=== PATIENT | male | born 1950 | race Caucasian/White ===

== ENCOUNTER 2024-11-06 12:29 | Outpatient (CLI) | payer MEDICARE, SELFPAY ==
--- NOTE | ~2024-11-06 | PE_ITS ---
EXAMINATION: PET_PETPSMAST_PT DATE: 11/06/2024 14:57 INDICATION: Prostate cancer TECHNIQUE: 5.156 mCi of Illucix Ga-[id number]) was administered i.v. Low dose computed marita graphy (CT) images were acquired from the base of the brain to the base of the brain to the proximal thighs for attenuation correction and anatomic localization. Positron emission tomography (PET) image s were acquired in the same distribution beginning 92 minutes after injection. Images including fused PET/CT images were reconstructed in axial, coronal, and sagittal planes. Automated exposure control technique was employed. The dose-length product was 1373.69mGy-cm. COMPARISON: None FINDINGS: Head/neck: Typical pattern of symmetric physiologic increased activity in the lacrimal, parotid and submandibula r glands as well as along the mucosa of the nasal and oral cavities, pharynx and hypopharynx. 1.8 cm right thyroid nodule with peripheral rim calcification and with minimally increased PSMA with maximal SUV of 3.6. No pathologically enlarged cervical lymphadenopathy or suspicious foci of increased upta ke in the visualized head or neck. Chest: 9 mm left upper lobe nodule without evident PSMA activity. Small calcified right upper lobe nodule al chelo with calcified right hilar and mediastinal lymph nodes consistent with old granulomatous disease. No other suspicious pulmonary nodules. Groundglass opacity in the anterobasilar left lower lobe and in the adjacent lingula, the former with bandlike configuration favoring atelectasis. There is also m ild dependent atelectasis in bilateral lower lobes. Heart size is normal. No pericardial effusion. Th oracic aorta is normal in caliber. No pathologically enlarged or PSMA avid thoracic lymphadenopathy. Abdomen/pelvis/proximal thighs: Physiologic renal accumulation and excretion of activity in the kidneys, bladder and along portions o f ureters. Small region of prominent increased peripheral zone activity at the central to left environmental engineer scientist ior inferior prostate with maximal SUV of 18.3 consistent with primary prostate cancer. Normal degree and slightly heterogenous pattern of increased uptake throughout the liver and spleen without radiol ogic correlate or dominant PSMA avid lesion. The gallbladder, pancreas and bilateral adrenal glands a re normal. Moderate uptake scattered throughout the bowels with typical duodenal and proximal jejunal predominance and without radiologic correlate, also likely physiologic. No other abnormal foci of in creased uptake or pathologically enlarged lymphadenopathy in the abdomen, pelvis or proximal thighs. Musculoskeletal: Severe thoracic and mild to moderate cervical and lumbar spondylosis with bridging osteophytes at mul tiple levels consistent with diffuse idiopathic skeletal hyperostosis (DISH). Indeterminate 1.8 cm sc lerotic lesion at the anterior iliac side of the left sacroiliac joint which without PSMA activity to suggest metastatic prostate cancer. Several additional significant smaller and more densely scleroti c likely bone bone islands also without abnormal uptake scattered throughout the pelvis. No other alberto picious lytic, blastic or PSMA avid bone lesions. IMPRESSION: 1. Small region of increased uptake in the posterior inferior prostate consistent with primary prosta te cancer. No PSMA avid lesion suspicious for metastatic prostate cancer. 2. Indeterminate 9 mm left upper lobe pulmonary nodule. Recommend correlation with any prior outside imaging and if long-term stability cannot be confirmed would recommend further evaluation with standa rd PET CT or 3 month follow-up chest CT. 3. Small region of groundglass opacity in the lingula most likely related to atelectasis although dif ferential would include pneumonia or less likely primary bronchogenic carcinoma. Recommend similar co rrelation with prior outside imaging or follow-up as for the 9 mm solid left upper lobe nodule. 4. Indeterminate 1.8 cm right thyroid nodule. Consider thyroid ultrasound for risk stratification. 5. 1.8 cm sclerotic lesion in the left innominate bone without PSMA uptake to suggest metastatic pros [place]ños cancer. Recommend correlation with any prior outside imaging and if unavailable would consider f urther evaluation with bone scan. Reviewed, dictated and finalized at location A. IMPRESSION: 1. Small region of increased uptake in the posterior inferior prostate consiste nt with primary prostate cancer. No PSMA avid lesion suspicious for metastatic prostate cancer. 2. Indeterminate 9 mm left upper lobe pulmonary nodule. Recommend correlation w ith any prior outside imaging and if long-term stability cannot be confirmed wo uld recommend further evaluation with standard PET CT or 3 month follow-up ches t CT. 3. Small region of groundglass opacity in the lingula most likely related to at electasis although differential would include pneumonia or less likely primary bronchogenic carcinoma. Recommend similar correlation with prior outside imagin g or follow-up as for the 9 mm solid left upper lobe nodule. 4. Indeterminate 1.8 cm right thyroid nodule. Consider thyroid ultrasound for r isk stratification. 5. 1.8 cm sclerotic lesion in the left innominate bone without PSMA uptake to s uggest metastatic prostate cancer. Recommend correlation with any prior outside imaging and if unavailable would consider further evaluation with bone scan.
--- OUTSIDE RECORDS SUMMARY | 2024-11-06 14:51 | XMS_ITS | Clinical Summary ---
Author Organization [facility] Address [address] [facility] [place] [address] Care Team Providers Care Janitor Head Name Role Phone Jag Licea MD Unavailable [phone] Heydi Lao MD Unavailable [phone] Pj Singh MD Primary Care Provider [phone] Source Comments [facility],non-owned Affiliates and Associated Physician Practices is amultiple site organization consisting of ambulatory clinics and hospital sitesin [place], [place], [place] and [place]. This disclosure is being madepursuant to the Care Everywhere program and may not contain all information available regarding this patient. Last updated 18.[facility] Allergies No known active allergies Medications * Be aware that medications may not be up to date on this document. Alwaysverify current medications with the patient. Medication Sig Dispensed Refills Start Date End Date Status apixaban (ELIQUIS) 5 MG tablet Take 1 (one) tablet by mouth 2 times daily 10/10/2019 Active insulin degludec (TRESIBA FLEXTOUCH) 200 UNIT/ML pen 40 (forty) Units once daily 08/02/2019 Active atorvastatin (LIPITOR) 40 MG tablet Take 1 (one) tablet by mouth Active amLODIPine (NORVASC) 5 MG tablet TAKE 1 TABLET BY MOUTH EVERY MORNING 01/23/2019 Active lisinopril-hydroCH LOROthiazide (PRINZIDE; ZESTORETIC) 20-12.5 MG tablet TAKE 2 TABLETS BY MOUTH EVERY DAY 01/23/2019 Active blood glucose (PRECISION QID TEST) test strip USE TO CHECK SUGAR 3 TIMES DAILY 09/12/2019 Active Cobalamin Combinations (FOLTRATE) 500-1 MCG-MG Take 1 tablet by mouth once daily Active Insulin Pen Needle (NOVOFINE PLUS) 32G X 4 MM MISC USE TWICE A DAY DIRECTED 08/14/2019 Active finasteride (PROSCAR) 5 MG tablet 1 (one) tablet 01/23/2019 Active Lutein-Zeaxanthin 25-5 MG Take 1 capsule by mouth once daily Active tamsulosin (FLOMAX) 0.4 MG capsule TAKE 2 CAPSULES BY ORAL ROUTE EVERY DAY 1/2 HOUR FOLLOWING THE SAME MEAL EACH DAY 07/24/2019 Active MYRBETRIQ 50 MG tablet Take by mouth once daily 11/12/2019 Active Accu-Chek FastClix Lancets USE TO CHECK SUGARS THREE TIMESA DAY 05/08/2022 Active liraglutide (Victoza) 18 MG/3ML pen Inject 1.8 mg subcutaneously once daily 9 mL 2 01/14/2023 Active metFORMIN ER 24hr (Glucophage XR) 750 MG tablet 12/15/2022 Active modafinil (Provigil) 200 MG tablet Take 1 (one) tablet by mouth once daily 30 tablet 5 12/07/2022 Active spironolactone (Aldactone) 25 MG tablet Take 1 (one) tablet by mouth once daily 11/30/2022 Active omeprazole (PriLOSEC) 10 MG capsule Take 1 (one) capsule by mouth daily before breakfast 12/31/2023 Active Jardiance 10 MG tablet Take 1 (one) tablet by mouth once daily 04/03/2024 Active pioglitazone (Actos) 30 MG tablet Take 1 (one) tablet by mouth once daily 03/24/2024 Active lisinopril (Prinivil; Zestril) 20 MG tablet Take 1 (one) tablet by mouth once daily Active carvedilol (Coreg) 25 MG tablet TAKE 1 TABLET BY MOUTH TWICE DAILY WITH BREAKFAST AND DINNER 180 tablet 1 05/08/2024 Active potassium chloride ER (Klor-Con M) 20 MEQ tablet TAKE 2 TABLETS BY MOUTH EVERY DAY 180 tablet 3 06/02/2024 Active Active Problems Problem Noted Date Diagnosed Date MACHUCA (dyspnea on exertion) 01/28/2020 Chronic anticoagulation 01/28/2020 Persistent atrial fibrillation 11/25/2019 Essential hypertension 11/25/2019 Encounters Date Type Department Care Team Description 10/18/2024 11:30 AM OFFICE ASSISTANCE Office Visit [facility] [id number] [place] [address] [address] [place] [phone] Jag Licea MD Persistent atrial fibrillation (HCC) (Primary Dx); Chronic anticoagulation 10/18/2024 Travel 09/21/2024 Travel from Last 3 Months Social History Tobacco Use Types Packs/Day Years Used Date Smoking Tobacco: Never Smokeless Tobacco: Never Tobacco Cessation:Counseling Given: Not Answered Alcohol Use Standard Drinks/Week Comments Never 0 (1 standard drink = 0.6 oz pur e alcohol) AUDIT-C Answer Date Recorded Q1: How often do you have a drink containing alc ohol? Never 10/11/2020 Average Number of Drinks Not on file 021 Frequency of Binge Drinking Not on file 09/23 Sex and Gender Information Value Date Recorded Sex Assigned at Male 10/06/2020 7:39 PM OFFICE ASSISTANCE Gender Identity Male 10/06/2020 7:39 PM OFFICE ASSISTANCE Sexual Orientation Straight 10/06/2020 7: 39 PM OFFICE ASSISTANCE Last Filed Vital Signs Vital Sign Reading Time Taken Comments Blood Pressure 111/75 10/18/2024 11:23 AM OFFICE ASSISTANCE Pulse 64 10/18/2024 11:23 AM OFFICE ASSISTANCE Temperature 36.1 C (97 F) 11/05/2020 7:34 AM CDT Respiratory Rate 22 11/05/2020 12:30 PM CDT Oxygen Saturation 97% 10/18/2024 11:23 AM OFFICE ASSISTANCE Inhaled Oxygen Concentration - - Weight 136.1 kg (300 lb) 10/18/2024 11:23 AM OFFICE ASSISTANCE Height 185.4 cm (6' 0.99 ) 10/18/2024 11:[address] Body Mass Index 39.59 10/18/2024 11:23 AM OFFICE ASSISTANCE Plan of Treatment Upcoming Encounters Date Type Department Care Team (Late st Contact Info) Description 02/28/2025 11:00 AM CDT Office Visit [facility] [address] [place] [address] [address] [place] [address] [place] [id number] [phone] 08/10/2025 10:45 AM OFFICE ASSISTANCE Office Visit [facility] [address] [facility] [place] [address] [place] [address] [facility] [address] [place] [address] Health Maintenance Due Date Last Done Comments COLOGUARD (AGES 45-75) - COLON CA SCREENING [address] COLONOGRAPHY - COLON CA SCREENING 1949 FIT - COLON CA SCREENING 1950 FLEX SIG - COLON CA SCREENING 1949 MEDICARE AWV 12 MONTHS 1949 HEPATITIS C SCREENING 05/24/1967 DTAP/TDAP/TD VACCINES (1 - Tdap) 1968 PNEUMOCOCCAL VACCINE 50+ (1 of 1 - PCV) 1999 ZOSTER VACCINE (1 of 2) 1999 COVID-19 VACCINE (4 - season) 2024 05/08/2022, 11/22/2020, 10/25/2020 Respiratory Syncytial Virus (RSV) Vaccine Pt: or over 60 yrs (1 - 1-dose 75+ series) 2024 DEPRESSION SCREENING 08/23/2024 COLONOSCOPY - COLON CA SCREENING 07/03/2030 07/03/2020 Colorectal Cancer Screening 07/03/2030 INFLUENZA VACCINE Completed 05/09/2024, , 06/03/2018, Additional history exists HEPATITIS B VACCINE Aged Out No longe r eligible based on patient's age to complete this topic HIB VACCINE Aged Out No longer eligi ble based on patient's age to complete this topic HPV VACCINE Aged Out No longer eligi ble based on patient's age to complete this topic MENINGOCOCCAL (Group B) VACCINE SHARED DECISION-MAKING Aged Out No longer eligible based on patient's age to complete this topic MENINGOCOCCAL GROUPS A/C/Y/W VACCINE Aged Out No longer eligible based on patient's age to complete this topic Procedures Procedure Name Priority Date/Time Associated Diagnosis Comments MD REMOTE 30 DAY ECG REV/REPORT Routine 10/04/2024 Palpitations EVENT MONITOR Routine 10/04/2024 Persistent atrial fibrillation (HCC) from Last 3 Months Results * MD REMOTE 30 DAY ECG REV/REPORT (10/04/2024) Impressions Jag Licea MD - 10/04/2024 - 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 - His maximum heart rate was 127 bpm. - His average heart rate was 66 bpm. - His minimum heart rate was 50 bpm. - There were 3 symptomatic patient triggered events. One of the patient triggered events demonstrates paroxysmal atrial fibrillation and two of the patient triggered events demonstrates sinus rhythm. 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 - His maximum heart rate was 127 bpm. - His average heart rate was 66 bpm. - His minimum heart rate was 50 bpm. - There were 3 symptomatic patient triggered events. One of the patient triggered events demonstrates paroxysmal atrial fibrillation and two of the patient triggered events demonstrates sinus rhythm. Jag Licea MD CARDIAC SERVICES ORDERABLES from Last 3 Months Care Teams Janitor Head Relationship Specialty Start Date End Date Pj Singh MD [address] [place] [address] PCP - General Hospitalist 04/01/23 [place] [id number] [phone] Consulting Physician Cardiac Electrophysiology 10/11/20 [place] [id number] [facility] [address] [place] [address] Clinical Research Director Cardiovascular Disease 12/20/20
--- OUTSIDE RECORDS SUMMARY | 2024-11-06 14:51 | XMS_ITS | Referral Summary ---
Author Organization [facility] Address [address] [place] [address] Care Team Providers Care Extrusion Press Supervisor Name Role Phone Jag Licea MD Unavailable [phone] Heydi Lao MD Unavailable [phone] Pj Singh MD Primary Care Provider [phone] Source Comments [facility],non-owned Affiliates and Associated Physician Practices is amultiple site organization consisting of ambulatory clinics and hospital sitesin [place], [place], [place] and [place]. This disclosure is being madepursuant to the Care Everywhere program and may not contain all information available regarding this patient. Last updated 18.[facility] Encounters Date Type Department Care Team Description 10/18/2024 Travel 10/18/2024 11:30 AM SUPERVISOR CHEMICAL Office Visit [facility] [address] [place] [phone] Jag Licea MD Persistent atrial fibrillation (HCC) (Primary Dx); Chronic anticoagulation 09/21/2024 Travel from Last 3 Months Allergies No known active allergies Medications * [...] Persistent atrial fibrillation 11/25/2019 Essential hypertension 11/25/2019 Social History Tobacco Use Types Packs/Day Years [...] Sex Assigned at Male 10/06/2020 7:39 PM SUPERVISOR CHEMICAL Gender Identity Male 10/06/2020 7:39 PM SUPERVISOR CHEMICAL Sexual Orientation Straight 10/06/2020 7: 39 PM SUPERVISOR CHEMICAL Last Filed Vital Signs Vital Sign Reading Time Taken Comments Blood Pressure 111/75 10/18/2024 11:23 AM SUPERVISOR CHEMICAL Pulse 64 10/18/2024 11:23 AM SUPERVISOR CHEMICAL Temperature 36.1 C (97 F) 11/05/2020 7:34 AM CDT Respiratory Rate 22 11/05/2020 12:30 PM CDT Oxygen Saturation 97% 10/18/2024 11:23 AM SUPERVISOR CHEMICAL Inhaled Oxygen Concentration - - Weight 136.1 kg (300 lb) 10/18/2024 11:23 AM SUPERVISOR CHEMICAL Height 185.4 cm (6' 0.99 ) 10/18/2024 11:[address] Body Mass Index 39.59 10/18/2024 11:23 AM SUPERVISOR CHEMICAL Plan of Treatment Upcoming Encounters Date Type Department Care Team (Late st Contact Info) Description 02/28/2025 11:00 AM CDT Office Visit [facility] [address] [facility] [address] [place] [address] [place] [address] [place] [phone] 08/10/2025 10:45 AM SUPERVISOR CHEMICAL Office Visit [facility] [address] [facility] [place] [phone] [place] [address] [facility] [address] [place] [address] Procedures Procedure Name Priority Date/Time Associated Diagnosis Comments [place] REMOTE 30 DAY ECG REV/REPORT Routine 10/04/2024 Palpitations EVENT MONITOR Routine 10/04/2024 Persistent atrial fibrillation (HCC) from Last 3 Months Results * [place] REMOTE 30 DAY ECG REV/REPORT (10/04/2024) Impressions Jag Licea MD - 10/04/2024 - Mr. Guarddao wore a engine monitor from 04/28/24 to 05/27/24. - His maximum heart rate was 127 bpm. - His average heart rate was 66 bpm. - His minimum heart rate was 50 bpm. - There were 3 symptomatic patient triggered events. One of the patient triggered events demonstrates paroxysmal atrial fibrillation and two of the patient triggered events demonstrates sinus rhythm. Jag Licea MD [place] - PROFESSIONAL SERVICES * EVENT MONITOR (10/04/2024) Impressions Jag Licea MD - 10/04/2024 - Mr. Guardado wore a engine monitor from 04/28/24 to 05/27/24. - His maximum [...] ORDERABLES from Last 3 Months Care Teams Extrusion Press Supervisor Relationship Specialty Start Date End Date Pj Singh MD [address] [place] [address] [address] [place] [phone] PCP - General Hospitalist 04/01/23 [place] [id number] [facility] [address] [place] [phone] Consulting Physician Cardiac Electrophysiology 10/11/20 [place] [address] [facility] [address] [place] [address] Automation Machine Builder Cardiovascular Disease 12/20/20
--- OUTSIDE RECORDS SUMMARY | 2024-11-06 14:51 | XMS_ITS | Clinical Summary ---
Author Organization [facility] Address [address] [place] [id number] Care Team Providers Care Felled Seam Operator Name Role Phone Damion Donis MD Unavailable Pj Singh MD Primary Care Provider [phone] Stone Cai MD Unavailable Allergies Active Allergy Reactions Criticality Noted Date Comments Tramadol Stomach upset Low 12/02/2020 Medications lutein-zeaxanthin 25-5 mg capsule Take 1 capsule by mouth daily Active vitamin Z26-njvda acid 0.5-1 mg tablet Take 1 tablet by mouth daily Active Klor-Con M20 20 mEq CR tablet Take 1 tablet (20 mEq total) by mouth daily Taking 1-2 tablets at night 020 Active carvediloL (COREG) 25 mg tablet Take 1 tablet (25 mg total) by mouth 2 (two) times a day with meals 021 Active tamsulosin (FLOMAX) 0.4 mg extended release capsule Take 1 capsule (0.4 mg total) by mouth 2 (two) times a day 180 capsule 1 024 Active lancets (Accu-Chek Fastclix Lancet Drum) miscIndications:Typ e 2 diabetes mellitus with hyperlipidemia (HCC) 1 each by other route 3 (three) times a day 300 each 1 024 Active pen needle, diabetic (NovoFine Plus) 32 gauge x 1/6 needle Use twice daily as directed 100 each 3 024 Active atorvastatin (LIPITOR) 40 mg tablet TAKE 1 TABLET (40 MG TOTAL) BY MOUTH DAILY 100 tablet Active modafiniL (PROVIGIL) 200 mg tabletIndications:H ypersomnia with sleep apnea TAKE 1 TABLET (200 MG TOTAL) BY MOUTH DAILY 30 tablet Active Additional Information Patient not taking.Reported on 06/26/2024 pen needle, diabetic (Unifine Pentips) 32 gauge x 5/32 needle 1 pen needle daily 100 each 3 024 Active pen needle, diabetic (Unifine Pentips) 32 gauge x 5/32 needle 1 pen needle 2 (two) times a day 100 each Active blood glucose diagnostic (Accu-Chek Zoila Plus test strp) stripIndications:Ty pe 2 diabetes mellitus without complication, with long-term current use of insulin ([facility]) USE TO TEST 3 TIMES A DAY 300 strip 3 Active spironolactone (ALDACTONE) 25 mg tablet TAKE 1 TABLET (25 MG TOTAL) BY MOUTH DAILY 90 tablet 1 Active mirabegron ER (Myrbetriq) 50 mg tablet extended release 24 hr TAKE 1 TABLET BY MOUTH EVERY DAY 90 tablet 1 024 Active metFORMIN XR (GLUCOPHAGE XR) 750 mg 24 hr tablet TAKE 1 TABLET BY MOUTH TWICE DAILY 180 tablet 1 024 Active amLODIPine (NORVASC) 5 mg tablet TAKE 1 TABLET (5 MG TOTAL) BY MOUTH EVERY MORNING 90 tablet 1 024 Active finasteride (PROSCAR) 5 mg tablet TAKE 1 TABLET BY MOUTH EVERY DAY 100 tablet Active fenofibrate nanocrystallized (TRICOR) 145 mg tablet Take 1 tablet (145 mg total) by mouth daily 90 tablet 1 024 Active blood-glucose sensor deviceIndications:T ype 2 diabetes mellitus without complication, with long-term current use of insulin ([facility]) 1 each every 14 (fourteen) days May substitute whatever CGM is covered by insurance. 1 each 024 2024 Active flash glucose scanning reader (FreeStyle Cecelia 2 [place]) miscIndications:Typ e 2 diabetes mellitus without complication, with long-term current use of insulin ([facility]) 1 each once for 1 dose May substitute whatever CGM is covered by insurance. 1 each Active lisinopriL (PRINIVIL,ZESTRIL) 10 mg tablet Take 1 tablet (10 mg total) by mouth daily 90 tablet 1 024 2024 Active TRESIBA 200 unit/mL (3 mL) pen for injection INJECT 50 UNITS UNDER THE SKIN DAILY AFTER DINNER 4 mL 1 Active omeprazole (PriLOSEC) 40 mg capsule Take 1 capsule (40 mg total) by mouth daily 90 capsule 1 025 2024 Active empagliflozin (Jardiance) 10 mg tablet Take 1 tablet (10 mg total) by mouth daily 90 tablet Active apixaban (Eliquis) 5 mg tablet Take 1 tablet (5 mg total) by mouth 2 (two) times a day 180 tablet Active pioglitazone (ACTOS) 30 mg tabletIndications:t ype 2 diabetes mellitus Take 1 tablet (30 mg total) by mouth daily 100 tablet 2024 Active semaglutide (Ozempic) 0.25 mg or 0.5 mg (2 mg/3 mL) pen injector injection INJECT 0.5 MG UNDER THE SKIN ONCE A WEEK 3 mL Active Eliquis 5 mg tablet TAKE 1 TABLET BY MOUTH TWICE DAILY 180 tablet 2024 Discontinued(R eorder) pioglitazone (ACTOS) 30 mg tabletIndications:t ype 2 diabetes mellitus TAKE 1 TABLET (30 MG TOTAL) BY MOUTH DAILY 100 tablet 2024 Discontinued(R eorder) Jardiance 10 mg tablet TAKE 1 TABLET (10 MG TOTAL) BY MOUTH DAILY 90 tablet 2024 Discontinued(R eorder) semaglutide 0.25 mg or 0.5 mg (2 mg/3 mL) pen injector injection Inject 0.5 mg under the skin once a week 9 mL 024 2024 Discontinued Active Problems Problem Noted Date Diagnosed Date Vitamin D deficiency 08/08/2024 Class 3 severe obesity due t o excess calories with serious comorbidity and body mass index (BMI) of 40.0 to 44.9 in adult 02/07/2024 Assessment & Plan (08/08/2024 11:11 AM PASTE PLANT SUPERVISOR): Wt Readings from Last 3 Encounters: 08/08/24 (!) 137.8 kg (303 lb 11.2 oz) 06/26/24 136.1 kg (300 lb) 02/07/24 (!) 137.7 kg (303 lb 8 oz) BMI Readings from Last 3 Encounters: 08/08/24 40.08 kg/m 06/26/24 39.58 kg/m 02/07/24 40.05 kg/m Not at goal of bmi <30 Continue diet and exercise BMI Follow-up includes: nutrition counseling and exercise counseling. Assessment & Plan (02/07/2024 10:41 AM CDT): Wt Readings from Last 3 Encounters: 02/07/24 (!) 137.7 kg (303 lb 8 oz) 12/16/23 134.7 kg (297 lb) 10/04/23 (!) 136.8 kg (301 lb 8 oz) BMI Readings from Last 3 Encounters: 02/07/24 40.05 kg/m 12/16/23 39.19 kg/m 10/04/23 39.79 kg/m Not at goal of bmi <30 Continue diet and exercise BMI Follow-up includes: nutrition counseling and exercise counseling. Rising PSA level 04/07/2023 Medicare annual wellness visit, subsequent 03/30 Assessment & Plan (08/08/2024 11:23 AM PASTE PLANT SUPERVISOR): A yearly Medicare Annual Wellness Visit has been performed today. Kathy Guardado is up to date on screening tests. They are in need of None- no screening indicated at this time- these have been ordered. Patient is not up to date on needed preventative vaccinations; Is in need of Covid-19 (booster). These have been ordered/arranged unless otherwise indicated. Assessment & Plan (04/07/2023 11:35 AM CDT): A yearly Medicare Annual Wellness Visit has been performed today. Kathy Guardado is up to date on screening tests. They are in need of None- no screening indicated at this time- these have been ordered. Patient is not up to date on needed preventative vaccinations; Is in need of Covid-19 (booster). These have been ordered/arranged unless otherwise indicated. Assessment & Plan (03/30/2022 10:36 AM CDT): Ordered CBC, cmp, lipid, hgb a1c, HIV Colonoscopy: up todate F/u in 1 year for annual Paroxysmal atrial fibrillation 09/29/2021 Assessment & Plan (09/01/2022 10:12 AM PASTE PLANT SUPERVISOR): Rate controlled. Continue eliquis 5 mgbid and atorvastatin 40 mg every day Assessment & Plan (03/29/2022 8:59 PM CDT): Stable / clinically quiescent. Will continue to monitor. Continue eliquis Coronary artery disease invo lving [place] coronary artery of [place] heart without angina pectoris 09/29/2021 Assessment & Plan (09/01/2022 10:07 AM PASTE PLANT SUPERVISOR): Continue with eliquis 5 mg bid, coreg 12.5 mg bid, atorvastatin 40 mg, and control of diabetes. History of colonic polyps 05/31/2020 Overview (05/31/2020): Added automatically from request for surgery [id number] Tinnitus of both ears 05/13/2020 Assessment & Plan (05/13/2020 12:10 PM CDT): Hearing test - Dr. Herrera call with results Deviated nasal septum 05/13/2020 Assessment & Plan (05/13/2020 12:09 PM CDT): Nasacort 2 sprays into each nostril while looking down over the sink, do not sniff in or blow nose after use for at least 30 minutes, daily 30 minutes before using CPAP Nasal saline spray (Simply saline, Little Remedies, [place], [place]) 2 second sprays or 2 squeezes into each nostril while looking down over the sink, do not need to sniff in every morning Continue CPAP Bilateral hearing loss 05/13/2020 Assessment & Plan (05/13/2020 12:11 PM CDT): Hearing test - Dr. Herrera call with results Essential hypertension 06/30/2017 Assessment & Plan (02/07/2024 10:46 AM CDT): BP Readings from Last 3 Encounters: 02/07/24 104/62 12/16/23 122/68 10/04/23 116/70 Vitals BP 104/62 (BP Location: Left arm, Patient Position: Sitting) Pulse 66 Resp 16 Ht 185.4 cm (6' 0.99 ) Wt (!) 137.7 kg (303 lb 8 oz) SpO2 96% BMI 40.05 kg/m Lab Results Component Value Date POTASSIUM 4.5 04/05/2023 At goal at this time However he has been out of his zestoretic for a few days Will stop the hctz Dec lisinopril to 10 mg every day, aldactone 25 mg every day Assessment & Plan (06/02/2023 10:36 AM CDT): BP Readings from Last 3 Encounters: 06/02/23 121/79 04/07/23 110/72 01/14/23 120/78 Vitals BP 121/79 Pulse 75 Temp 36.6 C (97.8 F) Resp 20 Wt 132.9 kg (293 lb) SpO2 97% BMI 38.67 kg/m Lab Results Component Value Date POTASSIUM 4.5 04/05/2023 At goal at this time However he has been out of his zestoretic for a few days Will stop the hctz Decrease lisinopril to 20 mg every day rather than bid hAve him rtc for bp check Assessment & Plan (04/07/2023 11:39 AM CDT): BP Readings from Last 3 Encounters: 04/07/23 110/72 01/14/23 120/78 11/30/22 (!) 164/104 Vitals BP 110/72 (BP Location: Left arm, Patient Position: Sitting) Pulse 74 Resp 16 Ht 185.4 cm (6' 0.99 ) Wt 132 kg (291 lb) SpO2 97% BMI 38.40 kg/m Lab Results Component Value Date POTASSIUM 4.5 04/05/2023 At goal at this time However he has been out of his zestoretic for a few days Will stop the hctz Decrease lisinopril to 20 mg every day rather than bid hAve him rtc for bp check Assessment & Plan (01/14/2023 9:44 AM CDT): BP Readings from Last 3 Encounters: 01/14/23 120/78 11/30/22 (!) 164/104 11/19/22 (!) 193/104 Vitals BP 120/78 (BP Location: Left arm, Patient Position: Sitting) Pulse 81 Resp 18 Ht 185.4 cm (6' 0.99 ) Wt 132.9 kg (293 lb 1.6 oz) SpO2 98% BMI 38.68 kg/m Lab Results Component Value Date POTASSIUM 3.6 06/29/2022 At goal at this time cotninue zestoretic 20-12.5 bid, norvasc 5 mg every day, coreg 25 mg bid Assessment & Plan (11/30/2022 10:10 AM CDT): BP Readings from Last 3 Encounters: 11/30/22 (!) 164/104 11/19/22 (!) 193/104 09/28/22 (!) 197/105 Vitals BP (!) 164/104 (BP Location: Left arm, Patient Position: Sitting) Pulse 93 Resp 18 Ht 185.4 cm (6' 0.99 ) Wt 135.8 kg (299 lb 4.8 oz) SpO2 98% BMI 39.50 kg/m Lab Results Component Value Date POTASSIUM 3.6 06/29/2022 Not at goal cotninue current regimen Start aldactone 25 mg every day Assessment & Plan (09/01/2022 10:09 AM PASTE PLANT SUPERVISOR): BP Readings from Last 3 Encounters: 09/01/22 138/72 07/01/22 152/88 05/22/22 137/87 Vitals BP 138/72 (BP Location: Left arm, Patient Position: Sitting) Pulse 78 Resp 18 Ht 185.4 cm (6' 1 ) Wt 136.1 kg (300 lb) SpO2 98% BMI 39.58 kg/m Lab Results Component Value Date POTASSIUM 3.6 06/29/2022 At goal continue coreg 12.5 mg bid , and norvasc 5 mg every day, and lisinopril- hctz 20/12.5 mg bid Assessment & Plan (07/01/2022 10:42 AM PASTE PLANT SUPERVISOR): Bp in the office today BP Readings from Last 1 Encounters: 07/01/22 152/88 repeat 138/80 Continue current regimen Recommend DASH diet, heart-healthy lifestyle, exercise. Discussed the risks of hypertension. F/u in 6 months Assessment & Plan (03/30/2022 10:33 AM CDT): Bp in the office today BP Readings from Last 1 Encounters: 03/30/22 130/82 Continue current regimen Recommend DASH diet, heart-healthy lifestyle, exercise. Discussed the risks of hypertension. F/u in 3 months Hyperlipidemia associated with type 2 diabetes marino dexter 06/30/2017 Assessment & Plan (08/08/2024 11:09 AM PASTE PLANT SUPERVISOR): Lab Results Component Value Date CHOL 185 08/02/2024 CHOL 146 04/05/2023 CHOL 106 06/29/2022 Lab Results Component Value Date HDL 28 (L) 08/02/2024 HDL 30 (L) 04/05/2023 HDL 30 (L) 06/29/2022 Lab Results Component Value Date LDLCALC See Comment 08/02/2024 LDLCALC 51 04/05/2023 LDLCALC 17 06/29/2022 LDL 52 08/01/2019 LDL 82 01/26/2019 LDL 106 07/22/2016 LDLDIRECT 53 08/02/2024 LDLDIRECT 48 (L) 06/16/2017 LDLDIRECT 71 10/28/2015 Lab Results Component Value Date TRIG 552 (H) 08/02/2024 TRIG 327 (H) 04/05/2023 TRIG 296 (H) 06/29/2022 No results found for: POCCHDLR No results found for: POCNONHDL No results found for: POCCHLPL Worsening at this time Triglycerides signficiantly increased Start fenofibrate now Pt does have some issues with taking statin and takes 40 mg 3-4 times a week Assessment & Plan (02/07/2024 10:42 AM CDT): Lab Results Component Value Date CHOL 146 04/05/2023 CHOL 106 06/29/2022 CHOL 169 04/03/2022 Lab Results Component Value Date HDL 30 (L) 04/05/2023 HDL 30 (L) 06/29/2022 HDL 30 (L) 04/03/2022 Lab Results Component Value Date LDLCALC 51 04/05/2023 LDLCALC 17 06/29/2022 LDLCALC 65 04/03/2022 LDL 52 08/01/2019 LDL 82 01/26/2019 LDL 106 07/22/2016 LDLDIRECT 48 (L) 06/16/2017 LDLDIRECT 71 10/28/2015 Lab Results Component Value Date TRIG 327 (H) 04/05/2023 TRIG 296 (H) 06/29/2022 TRIG 369 (H) 04/03/2022 No results found for: POCCHDLR No results found for: POCNONHDL No results found for: POCCHLPL Assessment & Plan (11/30/2022 9:47 AM CDT): Lab Results Component Value Date CHOL 106 06/29/2022 CHOL 169 04/03/2022 CHOL 115 09/22/2021 Lab Results Component Value Date HDL 30 (L) 06/29/2022 HDL 30 (L) 04/03/2022 HDL 32 (L) 09/22/2021 Lab Results Component Value Date LDLCALC 17 06/29/2022 LDLCALC 65 04/03/2022 LDLCALC 52 09/22/2021 LDL 52 08/01/2019 LDL 82 01/26/2019 LDL 106 07/22/2016 LDLDIRECT 48 (L) 06/16/2017 LDLDIRECT 71 10/28/2015 Lab Results Component Value Date TRIG 296 (H) 06/29/2022 TRIG 369 (H) 04/03/2022 TRIG 153 (H) 09/22/2021 No results found for: POCCHDLR No results found for: POCNONHDL No results found for: POCCHLPL Assessment & Plan (09/01/2022 10:11 AM PASTE PLANT SUPERVISOR): Lab Results Component Value Date CHOL 106 06/29/2022 CHOL 169 04/03/2022 CHOL 115 09/22/2021 Lab Results Component Value Date HDL 30 (L) 06/29/2022 HDL 30 (L) 04/03/2022 HDL 32 (L) 09/22/2021 Lab Results Component Value Date LDLCALC 17 06/29/2022 LDLCALC 65 04/03/2022 LDLCALC 52 09/22/2021 LDL 52 08/01/2019 LDL 82 01/26/2019 LDL 106 07/22/2016 LDLDIRECT 48 (L) 06/16/2017 LDLDIRECT 71 10/28/2015 Lab Results Component Value Date TRIG 296 (H) 06/29/2022 TRIG 369 (H) 04/03/2022 TRIG 153 (H) 09/22/2021 No results found for: POCCHDLR No results found for: POCNONHDL No results found for: POCCHLPL Elevated trig - continue making diet changes and continue atorvastatin 40 mg every day Type 2 diabetes mellitus wit hout complication, with long-term current use of insulin 06/30/2017 Assessment & Plan (08/08/2024 11:09 AM PASTE PLANT SUPERVISOR): Lab Results Component Value Date HGBA1C 6.7 (H) 08/02/2024 HGBA1C 5.9 02/07/2024 HGBA1C 9.2 10/04/2023 Lab Results Component Value Date MICROALBUR 3.9 08/01/2019 LDLCALC See Comment 08/02/2024 CREATININE 1.06 08/02/2024 At goal at this time Victoza 1.8 mg every day Reviewed blood sugar logs Generalyl running within range Occasionally has high morning sugars Abu[place] 2/30 days has sugars >200 in the am ] Decrease metfoermin to 750 mg xr every day Assessment & Plan (02/07/2024 10:41 AM CDT): Lab Results Component Value Date HGBA1C 5.9 02/07/2024 HGBA1C 9.2 10/04/2023 HGBA1C 7.2 (H) 04/05/2023 Lab Results Component Value Date MICROALBUR 3.9 08/01/2019 LDLCALC 51 04/05/2023 CREATININE 1.03 04/05/2023 At goal at this time Victoza 1.8 mg every day Reviewed blood sugar logs Generalyl running within range Occasionally has high morning sugars [place] 2/30 days has sugars >200 in the am ] Decrease metfoermin to 750 mg xr every day Assessment & Plan (10/04/2023 10:13 AM PASTE PLANT SUPERVISOR): Lab Results Component Value Date HGBA1C 9.2 10/04/2023 HGBA1C 7.2 (H) 04/05/2023 HGBA1C 7.5 11/30/2022 Lab Results Component Value Date MICROALBUR 3.9 08/01/2019 LDLCALC 51 04/05/2023 CREATININE 1.03 04/05/2023 Worsening at this time Sugar logs at home reviewed - has been runing 300s all the time Has been having worseing sugars but otherwise feeling well Continue metformin, tresiba Start jardiance 10 mg every day, actos 30 mg every day to get better glucose control Assessment & Plan (06/02/2023 10:35 AM CDT): Lab Results Component Value Date HGBA1C 7.2 (H) 04/05/2023 HGBA1C 7.5 11/30/2022 HGBA1C 6.4 (H) 06/29/2022 Lab Results Component Value Date MICROALBUR 3.9 08/01/2019 LDLCALC 51 04/05/2023 CREATININE 1.03 04/05/2023 At goal at this time cotninue current regiemn lipitor 40 mg every day, now doing about 40 units of tresiba victoza 1.8 mg every day but nto quite at goal Metformin 750 mg bid every day Assessment & Plan (04/07/2023 11:34 AM CDT): Lab Results Component Value Date HGBA1C 7.2 (H) 04/05/2023 HGBA1C 7.5 11/30/2022 HGBA1C 6.4 (H) 06/29/2022 Lab Results Component Value Date MICROALBUR 3.9 08/01/2019 LDLCALC 51 04/05/2023 CREATININE 1.03 04/05/2023 At goal at this time cotninue current regiemn lipitor 40 mg every day, now doing about 40 units of tresiba victoza 1.8 mg every day but nto quite at goal Metformin 750 mg bid every day Assessment & Plan (01/14/2023 9:50 AM CDT): Lab Results Component Value Date HGBA1C 7.5 11/30/2022 HGBA1C 6.4 (H) 06/29/2022 HGBA1C 7.8 (H) 09/22/2021 Lab Results Component Value Date MICROALBUR 3.9 08/01/2019 LDLCALC 17 06/29/2022 CREATININE 0.73 (L) 06/29/2022 At goal at this time Worsening at this time cotninue current regiemn lipitor 40 mg every day, now doing about 46 units of tresiba victoza 1.2 mg every day but nto quite at goal Discussed increasing tresiba further vs victoza Increase victoza 1.8 mg every day Metformin 750 mg bid every day Assessment & Plan (11/30/2022 10:09 AM CDT): Lab Results Component Value Date HGBA1C 7.5 11/30/2022 HGBA1C 6.4 (H) 06/29/2022 HGBA1C 7.8 (H) 09/22/2021 Lab Results Component Value Date MICROALBUR 3.9 08/01/2019 LDLCALC 17 06/29/2022 CREATININE 0.73 (L) 06/29/2022 At goal at this time Recheck a1c today Continue current regimen unless a1c much worse Worsening at this time cotninue current regiemn lipitor 40 mg every day, tresiba 29-32 units daily, victoza 1.2 mg every day Metformin 750 mg bid every day Assessment & Plan (09/01/2022 10:37 AM PASTE PLANT SUPERVISOR): Lab Results Component Value Date HGBA1C 6.4 (H) 06/29/2022 HGBA1C 7.8 (H) 09/22/2021 HGBA1C 6.9 (H) 02/26/2021 Lab Results Component Value Date MICROALBUR 3.9 08/01/2019 LDLCALC 17 06/29/2022 CREATININE 0.73 (L) 06/29/2022 Logs reviewed with maynorn, mostly at goal of 120-160 occasionally above that but otherwise a1c is at goal. No medication changes. Assessment & Plan (07/01/2022 10:16 AM PASTE PLANT SUPERVISOR): The patient was counseled on a heart-healthy, diabetic-friendly diet, as well as life-style modification. Education provided on the diagnosis and risks of the disease. We will continue to monitor routine labs. Additionally, He was counseled on routine diabetic eye exams, foot exams, and other preventive care. Most recent A1c on file:6.4 Continue current regimen F/u in 6 months Assessment & Plan (03/30/2022 10:35 AM CDT): The patient was counseled on a heart-healthy, diabetic-friendly diet, as well as life-style modification. Education provided on the diagnosis and risks of the disease. We will continue to monitor routine labs. Additionally, He was counseled on routine diabetic eye exams, foot exams, and other preventive care. Most recent A1c on file: 7.8 Continue regimen tresiba 40 units daily and victoza 1.2units daily Restart metformin at lower dose of 750mg daily, if upset stomach develops will decrease to 500mg daily Check BGs twice a day. At least daily A1c ordered today Micro/Cr ur ratio ordered F/u in 3 months Basal cell carcinoma (BCC) of forehead 7 Assessment & Plan (09/01/2022 10:05 AM PASTE PLANT SUPERVISOR): S/p excision doing well - following with derm/surg Neoplasm of skin of scalp 09/08/2016 Overview (12/02/2017): Description: - right frontal scalp (Away from sccis tx in 2013 of frontal scalp), ddx: bcc v cyst, wound care reviewed, f/u per path Eczema 09/08/2016 Overview (12/02/2017): Description: - left ear, non specific, will do mometasone cream daily - BID prn rash, f/u if not improved/resolved Keratosis, senilis 01/31/2016 Overview (12/02/2017): Description: Benign, reassurance. Dermatofibroma 01/31/2016 Overview (12/02/2017): Description: Benign, reassurance. Tinea pedis 01/31/2016 Overview (12/02/2017): Description: Begin OTC anti-fungal foot cream daily to twice daily, keep feet dry. Neoplasm of skin of thigh 01/30/2015 Neoplasm of neck 01/30/2015 History of nonmelanoma skin cancer 01/30/2015 Overview (12/02/2017): Description: Sun protect, skin cancer education, bx as above. Keratinizing cyst 07/31/2014 Angioma 07/02/2014 Skin neoplasm 07/02/2014 Overview (12/02/2017): Description: BCC vs. SCC. Bx performed today per Procedures section. Actinic keratosis 07/02/2014 Overview (12/02/2017): Description: LN2 x 1 = right forehead, blister care, sun protect. Migraine 03/06/2014 Overview (11/27/2016): MIGRNE UNSP WO NTRC MGRN Obstructive sleep apnea syndrome in adult 2011 Overview (11/27/2016): Obstructive sleep apnea syndrome in adult Hypersomnia with sleep apnea 04/07/2012 Overview (11/27/2016): Hypersomnia with sleep apnea Morbid obesity with BMI of 40.0-44.9, adult 03/23 Overview (11/27/2016): Morbid obesity Assessment & Plan (08/08/2024 11:24 AM PASTE PLANT SUPERVISOR): Wt Readings from Last 3 Encounters: 08/08/24 (!) 137.8 kg (303 lb 11.2 oz) 06/26/24 136.1 kg (300 lb) 02/07/24 (!) 137.7 kg (303 lb 8 oz) BMI Readings from Last 3 Encounters: 08/08/24 40.08 kg/m 06/26/24 39.58 kg/m 02/07/24 40.05 kg/m Not at goal of bmi <30 Continue diet and exercise BMI Follow-up includes: nutrition counseling and exercise counseling. Assessment & Plan (02/07/2024 10:41 AM CDT): Wt Readings from Last 3 Encounters: 02/07/24 (!) 137.7 kg (303 lb 8 oz) 12/16/23 134.7 kg (297 lb) 10/04/23 (!) 136.8 kg (301 lb 8 oz) BMI Readings from Last 3 Encounters: 02/07/24 40.05 kg/m 12/16/23 39.19 kg/m 10/04/23 39.79 kg/m Not at goal of bmi <30 Continue diet and exercise BMI Follow-up includes: nutrition counseling and exercise counseling. Assessment & Plan (11/30/2022 10:10 AM CDT): Wt Readings from Last 3 Encounters: 11/30/22 135.8 kg (299 lb 4.8 oz) 11/19/22 134.9 kg (297 lb 6.4 oz) 09/01/22 136.1 kg (300 lb) BMI Readings from Last 3 Encounters: 11/30/22 39.50 kg/m 11/19/22 39.24 kg/m 09/01/22 39.58 kg/m Not at goal of bmi <30 Continue diet and exercise BMI Follow-up includes: nutrition counseling and exercise counseling. Decreased testosterone level 01/12/2012 Overview (11/27/2016): Low testosterone Resolved Problems Problem Noted Date Diagnosed Date Resolved Date Nasal congestion 05/13/2020 03/12/2021 Assessment & Plan (05/13/2020 12:10 PM CDT): Nasacort 2 sprays into each nostril while looking down over the sink, do not sniff in or blow nose after use for at least 30 minutes, daily 30 minutes before using CPAP Nasal saline spray (Simply saline, Little Remedies, [place], [place]) 2 second sprays or 2 squeezes into each nostril while looking down over the sink, do not need to sniff in every morning Continue CPAP Chronic rhinitis 05/13/2020 03/12/2021 Assessment & Plan (05/13/2020 12:10 PM CDT): Nasacort 2 sprays into each nostril while looking down over the sink, do not sniff in or blow nose after use for at least 30 minutes, daily 30 minutes before using CPAP Nasal saline spray (Simply saline, Little Remedies, [place], [place]) 2 second sprays or 2 squeezes into each nostril while looking down over the sink, do not need to sniff in every morning Continue CPAP Internal derangement of left knee 02/16/2019 02/09/2020 Overview (02/16/2019): Added automatically from request for surgery [id number] Neoplasm of skin of nose 08/02/2017 Overview (12/02/2017): Description: - ddx: inflammatory papule v fibrous papule v r.o bcc; wound care reviewed, will follow-up on path Neoplasm of skin of ear 08/02/201701/21 Overview (12/02/2017): Description: - left intertragic notch, shave bx, will follow-up on path,wound care reviewed Neoplasm of skin of upper arm 08/02/2017 02/09/2020 Overview (12/02/2017): Description: - ddx: sk v nevus v r.o atypical melanocytic proliferation ; shave bx, wound care reviewed, will follow-up on path Hypertension 01/06/2014 02/09/2020 Overview (11/27/2016): HYPERTENSION NOS Multiple-type hyperlipidemia 01/06/2014 11/30/2022 Overview (11/27/2016): MIXED HYPERLIPIDEMIA Assessment & Plan (03/30/2022 10:33 AM CDT): Stable / clinically quiescent. Will continue to monitor. Lipid panel ordered Continue atorvastatin a few days a week as tolerated Encounters Date Type Department Care Team Description 10/05/2024 Telephone [facility] Primary Care at [address] [phone] Pj Singh MD Medical Question/Miscellaneou s 08/22/2024 Telephone [facility] Primary Care at [address] [phone] Pj Singh MD 08/09/2024 Telephone [facility] Primary Care at [address] [phone] Pj Singh MD Medical Question/Miscellaneou s 08/09/2024 Orders Only [facility] Primary Care at [address] [phone] Pj Singh MD Elevated PSA, between 10 and less than 20 ng/ml (Primary Dx); History of nonmelanoma skin cancer; Melanocytic nevus, unspecified location 08/08/2024 11:00 AM PASTE PLANT SUPERVISOR Office Visit [facility] Primary Care at [address] [phone] Pj Singh MD Medicare annual wellness visit, subsequent (Primary Dx); Class 3 severe obesity due to excess calories with serious comorbidity and body mass index (BMI) of 40.0 to 44.9 in adult (HCC); Morbid obesity with BMI of 40.0-44.9, adult (HCC); Type 2 diabetes mellitus without complication, with long-term current use of insulin (HCC); Hyperlipidemia associated with type 2 diabetes mellitus (HCC); Vitamin D deficiency; Elevated PSA, between 10 and less than 20 ng/ml from Last 3 Months Immunizations Immunization Administration Dates Next Due Influenza, Quad, Adjuvantate d, Intramuscular 05/04/2023,05/23/2020 Influenza, Quadrivalent, Hig h Dose, Preservative Free, Intrr 05/07/2022,05/06/2022,05/14/2021 Influenza, Quadrivalent, Spl it, Preservative Free, Intramuscular 06/08/2015 Influenza, Split 06/13/2012,07/01/2011, 0 Influenza, Trivalent, High D ose, Split, Preservative Free, Intramuscular 05/09/2024,05/13/2019,06/03/2018,06/18,07/03/2016 Influenza, Trivalent, IM (MDV) 2014,2012,2009 Influenza, Trivalent, Preser vative Free, Intramuscular 06/07/2015 Moderna SARS-CoV-2 Monovalen t Vaccination (12+ YRS) 11/22/2020,10/25/2020 Pfizer Sars-Cov-2 Bivalent V accination (12+ YRS) 05/08/2022,05/07/2022 Pneumococcal Conjugate PCV 13 05/10/2015 Pneumococcal Conjugate Pcv20 05/04/2023 Pneumococcal Polysaccharide PPV23 08/05/2016 RSV Vaccine, Pref, Recombina nt, Subunit, Adjuvanted, PF, IM (Arexvy) 07/20/2023 Td, adsorbed 02/09/2019 Tdap 07/29/2007 ZOSTER LIVE 05/11/2014 ZOSTER Recombinant 08/20/2018,05/16/2018, 018 Surgical History Surgery Date Site/Laterality Comments OTHER SURGICAL HISTORY 08/23/1977 - 08/22/1978 Left recontruction of thumb POLYPECTOMY COLONOSCOPY 07/01/2015 Medical History Medical History Date Comments Hx Other Medical Headache, migra ine Hypertension Hypertension Hyperlipidemia Hyperlipidemia Hx Other Medical hypogonadism; r esolved 03/03/19 Hx Other Medical 2010 broken peguls ( pelvis) Type 2 diabetes mellitus (HCC) D iabetes type 2; Comments: JDR 05/10/2014 - Hx Other Medical 2010 broken pelvis Eye exam, routine 05/14/2017 Sleep apnea CPAP it works f or me Colon polyp GERD (gastroesophageal reflu x disease) Atrial fibrillation (HCC) Benign prostatic hyperplasia Cancer (HCC) skin Family History Medical History Relation Name Comments Diabetes Father Salo Diabetes mellit us; Diabetes type II Father Salo Diabetes -T ype 2; Cause of : Diabetes -Type 2 Hypertension Father Salo Hypertension; Other Father Salo Alive and well; Skin cancer Father Salo Cancer -skin; Heart disease Mother Katerin Heart disease; Other Mother Katerin gall bladder; Other Other 1 No family histo ry of Cancer; Hypertension Other 2 Family history of Hypertension; Other Sister 2 Alive and well; Relation Name Status Comments Father Salo Mother Katerin Other 1 Other 2 Sister 1 Alive Sister 2 Social History Tobacco Use Types Packs/Day Years Used Date Smoking Tobacco: Never Smokeless Tobacco: Never Tobacco Cessation:Counseling Given: Not Answered Alcohol Use Standard Drinks/Week Comments Yes 0 (1 standard drink = 0.6 oz pur e alcohol) rarely PHQ-2 Answer Date Recorded PHQ-2 Total Score (If total score is 3 or more points, staff should administer the PHQ-9) 0 08/08/2024 Sex and Gender Information Value Date Recorded Sex Assigned at Not on file Legal Sex Male 11:51 PM PASTE PLANT SUPERVISOR Gender Identity Male 10/22/2020 4:14 PM PASTE PLANT SUPERVISOR Sexual Orientation Straight 10/22/2020 4: 14 PM PASTE PLANT SUPERVISOR Obstetrics History Last Filed Vital Signs Vital Sign Reading Time Taken Comments Blood Pressure 120/70 08/08/2024 10:39 AM PASTE PLANT SUPERVISOR Pulse 72 08/08/2024 10:39 AM PASTE PLANT SUPERVISOR Temperature 36.9 C (98.4 F) 06/26/2024 10:33 AM PASTE PLANT SUPERVISOR Respiratory Rate 16 08/08/2024 10:3 9 AM PASTE PLANT SUPERVISOR Oxygen Saturation 95% 08/08/2024 10: 39 AM PASTE PLANT SUPERVISOR Inhaled Oxygen Concentration - - Weight 137.8 kg (303 lb 11.2 oz) 2023 10:39 AM PASTE PLANT SUPERVISOR Height 185.4 cm (6' 0.99 ) 08/08/2024 1 0:39 AM PASTE PLANT SUPERVISOR Body Mass Index 40.08 08/08/2024 10:39 AM PASTE PLANT SUPERVISOR Plan of Treatment Health Maintenance Due Date Last Done Comments Hepatitis B Screening 1968 Foot Exam 03/30/2023 03/30/2022, 02/21, 08/06/2020, Additional history exists Dilated Eye Exam 06/22/2023 06/22/2022, 09/2018, 08/17/2017 Covid-19 Vaccine (8 - 2024-2 5 season) 2024 05/09/2024, 06/29/2023, 05/08/2022, Additional history exists Hemoglobin A1C 01/31/2025 08/02/2024, 01/21, 10/04/2023, Additional history exists Albumin Creatinine Ratio, Urine 02/06/2025 02/07/2024, 04/05/2023, 06/29/2022, Additional history exists Colon Cancer Screening-Colonoscopy 07/03/2025 07/03/2020, 07/01/2015, 07/01/2015 Lipid Panel 08/02/2025 08/02/2024, 03/23, 06/29/2022, Additional history exists Prostate Cancer Screening-PSA 08/02/2025, 03/25/2023, 02/26/2021, Additional history exists eGFR 08/02/2025 08/02/2024, 03/23, 06/29/2022, Additional history exists Depression Screening 08/08/2025 08/08/2024, 02/07/2024, 10/04/2023, Additional history exists Fall Risk Assessment 08/08/2025 08/08/2024, 02/07/2024, 10/04/2023, Additional history exists Well Visit 65+ 08/08/2025 08/08/2024, 03/23, 03/30/2022, Additional history exists DTaP/Tdap/Td Vaccine (3 - Td or Tdap) 02/09/2029 02/09/2019, 07/29/2007 Zoster Vaccine Completed 08/20/2018, 04/24, 04/11/2018, Additional history exists Colon Cancer Screening-CT Colonography Discontinued 07/03/2020, 07/01/2015, 07/01/2015 Colon Cancer Screening-DNA Stool Discontinued 07/03/2020, 07/01/2015, 07/01/2015 Colon Cancer Screening-FIT Discontinued 07/03, 07/01/2015, 07/01/2015 Colon Cancer Screening-Sigmoidoscopy Discontinued 07/03/2020, 07/01/2015, 07/01/2015 Hepatitis C Screening Completed 04/03/2022, 017 Pneumococcal vaccine 65+ Completed 023, 08/05/2016, 05/10/2015 Influenza Vaccine Completed 05/09/2024, , 05/07/2022, Additional history exists Procedures Procedure Name Priority Date/Time Associated Diagnosis Comments EGFR Routine 08/02/2024 9:11 AM PASTE PLANT SUPERVISOR Type 2 diabetes mellitus without complication, with long-term current use of insulin (HCC) HEMOGLOBIN A1C Routine 08/02/2024 9:11 AM PASTE PLANT SUPERVISOR Type 2 diabetes mellitus without complication, with long-term current use of insulin (HCC) LIPID PANEL Routine 08/02/2024 9:11 AM PASTE PLANT SUPERVISOR Type 2 diabetes mellitus without complication, with long-term current use of insulin (HCC) PSA SCREEN Routine 08/02/2024 9:11 AM PASTE PLANT SUPERVISOR Mixed hyperlipidemia Prostate cancer screening ALBUMIN CREATININE RATIO, URINE Routine 02/07/2024 10:19 AM CDT Type 2 diabetes mellitus without complication, with long-term current use of insulin (HCC) DIABETIC EYE EXAM Routine 06/22/2022 HEPATITIS C ANTIBODY Routine 04/03/2022 11:20 AM CDT Encounter for hepatitis C screening test for low risk patient COLONOSCOPY 07/03/2020 12:26 PM PASTE PLANT SUPERVISOR from Last 3 Months or Most Recently Relevant to Health Maintenance Results * eGFR (08/02/2024 9:11 AM PASTE PLANT SUPERVISOR) eGFR 73 >=60 mL/min/1. 73 m2 Comment: Interpretive Data Reference Interval Normal >/= 90 mL/min/1.73m2 Mildly decreased* 60 - 89 mL/min/1.73m2 Mildly to moderately decreased 45 - 59 mL/min/1.73m2 Moderately to severely decreased 30 - 44 mL/min/1.73m2 Severely decreased 15 - 29 mL/min/1.73m2 Kidney Failure < 15 mL/min/1.73m2 *Relative to young adult level Estimated glomerular filtration rate is determined by the 2020 CKD-EPI equation recommended by the National Kidney Foundation (A Unifying Approach to GFR Estimation: Recommendations of the NKF-ASK Task Force on Reassessing the Inclusion of Race in Diagnosing Kidney Disease, JASN 2020). The CKD-EPI equation should not be used for patients with unstable renal function and has not been validated in children and those over 70. Current interpretive data was last reviewed 2021. Blood 08/02/2024 9:11 AM PASTE PLANT SUPERVISOR 08/02/2024 1:49 PM PASTE PLANT SUPERVISOR Pj Singh MD LAB BLOOD ORDERABLES Final Resul t Performing Organization Address City/[facility] Co de Phone Number AHMET ANTUNEZ (ADRIAN) 1 [facility]ly [facility] Department [place] [address] * (ABNORMAL) PSA screen (08/02/2024 9:11 AM PASTE PLANT SUPERVISOR) PSA-Total 19.61(H) <=6.20 ng/mL Comment: Interpretive Data AGE SEX REFERENCE INTERVAL 0 minutes-150 years Female None 0 minutes-49 years Male None 50-59 years Male 0-3.90 60-69 years Male 0-5.40 70-79 years Male 0-6.20 80-150 years Male 0-6.20 The [place] PSA Total assay procedure was used. Results from different manufacturers or methods may not be comparable. Serial testing should be performed using the same method. Current interpretive data last revised 21. Blood 08/02/2024 9:11 AM PASTE PLANT SUPERVISOR 08/02/2024 1:49 PM PASTE PLANT SUPERVISOR Pj Singh MD LAB BLOOD ORDERABLES Final Resul t Performing Organization Address City/[facility] Co de Phone Number AHMET AMH [place]AN) 1 [facility] Department [place] [address] * (ABNORMAL) Hemoglobin A1c (08/02/2024 9:11 AM PASTE PLANT SUPERVISOR) Hgb A1C 6.7(H) 4.0 - 5.6 % Estimated Average Glucose 146 mg/dL AHMET ANTUNEZ (ADRIAN) Comment: The ADA recommends reporting an estimated Average Glucose (eAG) with all Hemoglobin A1c results using the equation derived from a study of 507 normal and diabetic adults. Minority populations were underrepresented and children were not included. (Diabetes Care 31:4091-5487, 2008). The eAG is not equivalent to a fasting glucose. Blood 08/02/2024 9:11 AM PASTE PLANT SUPERVISOR 08/02/2024 1:49 PM PASTE PLANT SUPERVISOR us Pj Singh MD LAB BLOOD ORDERABLES Final Resul t AHMET ANTUNEZ (ADRIAN) 1 [facility] Department [place] [address] * (ABNORMAL) Lipid panel (08/02/2024 9:11 AM PASTE PLANT SUPERVISOR) Cholesterol 185 30 - 199 mg/dL Comment: Interpretive Data Ages < or = 19 years Acceptable: <170 mg/dL Borderline high: 170-199 mg/dL High: >or= 200 mg/dL Ages > or = 20 years Desirable: <200 mg/dL Borderline high: 200-239 mg/dL High: >or= 240 mg/dL Literature References: 1. Expert Panel on Integrated Guidelines for Cardiovascular Health and Risk Reduction in Children and Adolescents. Pediatrics 2011;128:S213 2. NCEP Expert Panel. Circulation 2004;110:227 Current Interpretive Data was last revised on 2018. Triglycerides 552(H) <=149 mg/dL AHMET ANTUNEZ (ADRIAN) Comment: Interpretive Data Ages < or = 9 years Acceptable: <75 mg/dL Borderline high: 75-99 mg/dL High: >or= 100 mg/dL Ages 10 to 20 years Acceptable: <90 mg/dL Borderline high: 90-129 mg/dL High: >or= 130 mg/dL Ages > or = 20 years Desirable: <150 mg/dL Borderline high: 150-199 mg/dL High: 200-499 mg/dL Very high: >or= 499 mg/dL Literature References: 1. Expert Panel on Integrated Guidelines for Cardiovascular Health and Risk Reduction in Children and Adolescents. Pediatrics 2011;128:S213 2. NCEP Expert Panel. Circulation 2004;110:227 Current Interpretive Data was last revised on 2018. HDL 28(L) >=40 mg/dL AHMET ANTUNEZ (ADRIAN) Comment: Interpretive Data Ages < or = 19 years Acceptable: >45 mg/dL Borderline low: 40-45 mg/dL Low: <40 mg/dL Ages > or = 20 years Desirable: >or= 60 mg/dL Low: <40 mg/dL Literature References: 1. Expert Panel on Integrated Guidelines for Cardiovascular Health and Risk Reduction in Children and Adolescents. Pediatrics 2011;128:S213 2. NCEP Expert Panel. Circulation 2004;110:227 Current Interpretive Data was last revised on 2018. LDL, calculated See Comment <=129 mg/dL AHMET ANTUNEZ (ADRIAN) Comment: Unable to calculate due to elevated Triglycerides. Interpretive Data Ages < or = 19 years Acceptable: <110 mg/dL Borderline high: 110-129 mg/dL High: >or= 130 mg/dL Ages > or = 20 years Optimal: <100 mg/dL Near optimal: 100-129 mg/dL Borderline high: 130-159 mg/dL High: >160 mg/dL Calculated using the Grant LDL-C estimating equation. This equation was implemented on 2024. Prior to this date LDL-C was estimated using the Friedewald equation. Literature References: 1. Expert Panel on Integrated Guidelines for Cardiovascular Health and Risk Reduction in Children and Adolescents. Pediatrics 2011;128:S213 2. NCEP Expert Panel. Circulation 2004;110:227 3. Grant Arellano al. NEAL Cardiol. 2019December 21;5(5):540-548. doi: 10.1001/jamacardio.2020.0013 Current Interpretive Data was last revised on 2024. Non-HDL Cholesterol 157 mg/dL AHMET ANTUNEZ (ADRIAN) Comment: Interpretive Data Ages < or = 19 years Acceptable: <120 mg/dL Borderline high: 120-144 mg/dL High: >145 mg/dL Ages > or = 20 years When triglycerides are >200 mg/dL, Non-HDL cholesterol is a secondary target of therapy with treatment goals that are 30 mg/dL greater than the LDL cholesterol target. Literature References: 1. Expert Panel on Integrated Guidelines for Cardiovascular Health and Risk Reduction in Children and Adolescents. Pediatrics 2011;128:S213 2. NCEP Expert Panel. Circulation 2004;110:227 Current Interpretive Data was last revised on 2018. Chol/HDL ratio 7 [facility] (ADRIAN) Blood 08/02/2024 9:11 AM PASTE PLANT SUPERVISOR 08/02/2024 1:49 PM PASTE PLANT SUPERVISOR Pj Singh MD LAB BLOOD ORDERABLES Final Resul t Performing Organization Address City/[facility] Co de Phone Number AHMET ANTUNEZ ([place]) 1 [facility] Department [place] [address] * Albumin Creatinine Ratio, Urine (02/07/2024 10:19 AM CDT) Albumin Ur <12.0 mg/L Comment: Interpretive Data No reference range established. Current interpretive data was last revised 2019. Creatinine Ur 89.7 mg/dL AHMET Comment: Interpretive Data No reference range established. Current interpretive data was last revised 2019. Albumin Creatinine Ratio, Ur <13 1 - 29 mg/g AHMET Urine 02/07/2024 10:1 9 AM CDT 02/07/2024 8:20 PM CDT Pj Singh MD LAB URINE ORDERABLES Final Resul t Performing Organization Address City/[facility] Co de Phone Number AHMET [phone] [facility] Department [place] [address] * Diabetic Eye Exam (06/22/2022) Generic External Data Provider HEALTH MAINTENANC E Final Result * Hepatitis C antibody (04/03/2022 11:20 AM CDT) Hep C Ab Nonreactive Nonreactive AHMET [facility] (ADRIAN) Comment: Interpretive Data Nonreactive: Antibodies to HCV not detected. Does NOT exclude the possibility of recent exposure to HCV. Equivocal: Equivocal for HCV antibodies. Supplemental molecular testing will be automatically performed to determine infection status in accordance with current CDC screening recommendations. Reactive: Positive for HCV antibodies. This may represent current or past HCV infection. Supplemental molecular testing will be automatically performed to determine current infection status in accordance with current CDC screening recommendations. Interpretive data was last revised on 2019. Testing performed by: [facility], [address] [place] [address], [place]., [address] Blood 04/03/2022 11:2 0 AM CDT 04/03/2022 3:45 PM CDT Narrative AHMET HARMONY (ADRIAN) - 04/03/2022 4:43 PM CDT fasting Mary Hayes MD LAB MICROBIOL OGY - GENERAL ORDERABLES Edited Result - Final AHMET HARMONY (ADRIAN) 1 [facility] Department of Laboratories [place], [place] [id number] * COLONOSCOPY (07/03/2020 12:26 PM PASTE PLANT SUPERVISOR) Anatomical Region Laterality Modality Other Narrative Procedure Note Sherrie Haque MD - 07/03/2020 12:[address] [facility] Patient Name: Kathy Guardado Procedure Date: 07/03/2020 12:26PM Date of : 1950 Admit Type: Outpatient Age: 70 Gender: Male Attending MD: Sherrie Haque M.D. Room: [facility] ENDOSCOPY ROOM 1 Note Status: Finalized Patient Profile: This is a 70 year old male. No family history ofcolon cancer. History of adenoma polyps 5 years ago. Procedure: Colonoscopy Indications: Surveillance: Personal history of adenomatous polypson last colonoscopy 5 years ago, Last colonoscopy: June 2015 Referring MD: aKnu Hauser M.D. Providers: Sherrie Haque M.D. Impression: - The entire examined colon is normal overall. - Mild diverticulosis in the sigmoid colon. - Internal hemorrhoids. - No specimens collected. Recommendation: - Continue present medications. - Await pathology results. - Repeat colonoscopy in 5 years for screeningpurposes. Medicines: Monitored Anesthesia Care Complications: No immediate complications. Estimated Blood Loss: Estimated blood loss: none. Procedure: Pre-Anesthesia Assessment: - Prior to the procedure, a History and Physical was performed, and patient medications and allergieswere reviewed. The patient's tolerance of previous anesthesia was also reviewed. The risks and benefitsof the procedure and the sedation options and riskswere discussed with the patient. All questions were answered, and informed consent was obtained. Prior Anticoagulants: The patient has taken Eliquis (apixaban), last dose was 4 days prior to procedure. ASA Grade Assessment: II - A patient with mildsystemic disease. After reviewing the risks and benefits, the patient was deemed in satisfactory condition toundergo the procedure. The benefits, risks and alternatives of theprocedure and sedation were discussed and informed consent was obtained. All questions were answered. Please referto the signed informed consent document in the medical record. The bowel preparation used was Miralax. The bowel preparation used was bisacodyl tablets. Bowel prep was administered using a split dose. The scopewas passed under direct vision. The PediatricColonoscope [id number]-[id number] was introduced through the anusand advanced to the the cecum, identified by appendiceal orifice and ileocecal valve. The quality of thebowel preparation was excellent. Findings: The perianal and digital rectal examinations were normal. The colon (entire examined portion) appeared normal overall. Nopolyps and no mass lesions noted today. A few small-mouthed diverticula were found in the sigmoid colon. Internal hemorrhoids were found during retroflexion. The hemorrhoids were small. Electronically signed by Sherrie Haque M.D. Sherrie Haque M.D. 07/03/2020 1:50:41 PM Number of Addenda: 0 Note Initiated On: 07/03/2020 12:26 PM Procedure Code(s): --- Professional --- G0105, Colorectal cancer screening; colonoscopy on individual at high risk Diagnosis Code(s): --- Professional --- Z86.010, Personal history of colonic polyps K64.8, Other hemorrhoids K57.30, Diverticulosis of large intestine without perforation orabscess without bleeding CPT copyright 2017 [employer]. All rights reserved. The codes documented in this report are preliminary and upon architectural sales consultant reviewmay be revised to meet current compliance requirements. Recognized by the [employer] for promoting quality in endoscopy Sherrie Haque MD ENDOSCOPY PROCEDURES Final Result from Last 3 Months or Most Recently Relevant to Health Maintenance Insurance MEDICARE [facility] MEDICARE [place] MEDICARE SUPPLEMENT Advance Directives For more information, please contact: [phone] * Full Code (Latest Code Status on File) Date Activated Date Inactivated Comments 07/03/2020 12:20 PM 07/03/2020 6:29 PM * Full Code Date Activated Date Inactivated Comments 07/03/2020 12:20 PM 07/03/2020 12:20 PM Care Teams Felled Seam Operator Relationship Specialty Start Date End Date Pj Singh MD [address] [place] [address] PCP - General Family Medicine 09/01/22 Damion Donis MD [address] [place] [address] Consulting Physician Urology 03/30/22 Stone Cai MD [address] [place] [address] Consulting Physician Neurology 11/30/22
--- OUTSIDE RECORDS SUMMARY | 2024-11-06 14:51 | XMS_ITS | Clinical Summary ---
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 Gender Identity Not on file Sexual Orientation Not on file Plan of Treatment Health Maintenance Due Date Last Done Comments DTAP/TDAP/TD VACCINES (1 - Tdap) 1968 COLORECTAL SCREENING 1994 Colorectal Cancer Screening 1994 FIT-DNA Q 3 years 1994 FIT/FOBT Q 1 year 1994 Flex Sig/CT Colonography Q 5 years 1994 PNEUMOCOCCAL VACCINE 50+ YEARS (1 of 1 - PCV) 05/28/19 99 ZOSTER VACCINE (1 of 2) 1999 INFLUENZA VACCINE (#1) 2024 RSV VACCINE (60+ or ) (1 - 1-dose 75+ series) 2024 Care Teams Receiving Specialist Relationship Specialty Start Date End Date Kanu Hauser MD PCP - General Internal Medicine 02/27/11
--- OUTSIDE RECORDS SUMMARY | 2024-11-06 14:51 | XMS_ITS | Encounter Summary ---
Author Organization [facility] Address [address] [place] [address] Phone Care Team Providers Care Mobility Architect Manager Name Role Phone Kanu Hauser MD Primary Care Provider [phone] Mary Hayes MD Primary Care Provide r Damion Donis MD Unavailable [phone] Pj Singh MD Primary Care Provider [phone] Stone Cai MD Unavailable Encounter Details Date Type Department Care Team (Late st Contact Info) Description 09/22/2017 Orders Only [facility] ProviderDaja MD [address] [place] [id number] Social History Tobacco Use Types Packs/Day Years Used Date Smoking Tobacco: Never Smokeless Tobacco: Never Alcohol Use Standard Drinks/Week Comments Yes 0 (1 standard drink = 0.6 oz pur e alcohol) Sex and Gender Information Value Date Recorded Sex Assigned at Not on file Legal Sex Male 11:51 PM INFRASTRUCTURE ARCHITECT Gender Identity Male 10/22/2020 4:14 PM INFRASTRUCTURE ARCHITECT Sexual Orientation Straight 10/22/2020 4: 14 PM INFRASTRUCTURE ARCHITECT documented as of this encounter Plan of Treatment Not on file documented as of this encounter Procedures Procedure Name Priority Date/Time Associated Diagnosis Comments DISCHARGE LABORATORY CUMULATIVE REPORT 09/22/2017 12:00 AM INFRASTRUCTURE ARCHITECT documented in this encounter Results * DISCHARGE LABORATORY CUMULATIVE REPORT (09/22/2017 12:00 AM INFRASTRUCTURE ARCHITECT) Narrative 09/22/2017 12:00 AM INFRASTRUCTURE ARCHITECT Ordered by an unspecified provider. us Historical Provider LAB BLOOD ORDERABLES Oumou l Result documented in this encounter Visit Diagnoses Not on filedocumented in this encounter Care Teams Mobility Architect Manager Relationship Specialty Start Date End Date Kanu Hauser MD PCP - General 11/20/16 01/20/22 Mary Hayes MD [address] [facility] [address] [address] PCP - General Family Medicine 01/21/22 08/31/22 Pj Singh MD [address] [place] [address] PCP - General Family Medicine 09/01/22 Damion Donis MD [address] [place], [place] [id number] Consulting Physician Urology 03/30/22 Stone Cai MD [address] [place] [address] Consulting Physician Neurology 11/30/22 documented as of this encounter
--- OUTSIDE RECORDS SUMMARY | 2024-11-06 14:51 | XMS_ITS | Patient Health Summary ---
Author Organization [facility] Address [address] [place] [address] Care Team Providers Care Overedger Name Role Phone Jag Licea MD Unavailable [phone] Brian Gallegos MD Unavailable [phone] Pj Singh MD Primary Care Provider [phone] Note from [facility],non-owned Affiliates and Associated Physician Practices is amultiple site organization consisting of ambulatory clinics and hospital sitesin [place], [place], [place] and [place]. This disclosure is being madepursuant to the Care Everywhere program and may not contain all information available regarding this patient. Last updated 18.[facility] Allergies No known active allergies Medications * Be aware that medications may not be up to date on this document. Alwaysverify current medications with the patient. * apixaban (ELIQUIS) 5 MG tablet(Started 10/10/2019) Take 1 (one) tablet by mouth 2 times daily * insulin degludec (TRESIBA FLEXTOUCH) 200 UNIT/ML pen(Started 08/02/2019) 40 (forty) Units once daily * atorvastatin (LIPITOR) 40 MG tablet Take 1 (one) tablet by mouth * amLODIPine (NORVASC) 5 MG tablet(Started 01/23/2019) TAKE 1 TABLET BY MOUTH EVERY MORNING * lisinopril-hydroCHLOROthiazide (PRINZIDE; ZESTORETIC) 20-12.5 MG tablet (Started 01/23/2019) TAKE 2 TABLETS BY MOUTH EVERY DAY * blood glucose (PRECISION QID TEST) test strip(Started 09/12/2019) USE TO CHECK SUGAR 3 TIMES DAILY * Cobalamin Combinations (FOLTRATE) 500-1 MCG-MG Take 1 tablet by mouth once daily * Insulin Pen Needle (NOVOFINE PLUS) 32G X 4 MM MISC(Started 08/14/2019) USE TWICE A DAY DIRECTED * finasteride (PROSCAR) 5 MG tablet(Started 01/23/2019) 1 (one) tablet * Lutein-Zeaxanthin 25-5 MG Take 1 capsule by mouth once daily * tamsulosin (FLOMAX) 0.4 MG capsule(Started 07/24/2019) TAKE 2 CAPSULES BY ORAL ROUTE EVERY DAY 1/2 HOUR FOLLOWING THE SAME MEAL EACH DAY * MYRBETRIQ 50 MG tablet(Started 11/12/2019) Take by mouth once daily * Accu-Chek FastClix Lancets(Started 05/08/2022) USE TO CHECK SUGARS THREE TIMESA DAY * liraglutide (Victoza) 18 MG/3ML pen(Started 01/14/2023) Inject 1.8 mg subcutaneously once daily 2 refills remaining * metFORMIN ER 24hr (Glucophage XR) 750 MG tablet(Started 12/15/2022) * modafinil (Provigil) 200 MG tablet(Started 12/07/2022) Take 1 (one) tablet by mouth once daily 5 refills remaining * spironolactone (Aldactone) 25 MG tablet(Started 11/30/2022) Take 1 (one) tablet by mouth once daily * omeprazole (PriLOSEC) 10 MG capsule(Started 12/31/2023) Take 1 (one) capsule by mouth daily before breakfast * Jardiance 10 MG tablet(Started 04/03/2024) Take 1 (one) tablet by mouth once daily * pioglitazone (Actos) 30 MG tablet(Started 03/24/2024) Take 1 (one) tablet by mouth once daily * lisinopril (Prinivil; Zestril) 20 MG tablet Take 1 (one) tablet by mouth once daily * carvedilol (Coreg) 25 MG tablet(Started 05/08/2024) TAKE 1 TABLET BY MOUTH TWICE DAILY WITH BREAKFAST AND DINNER 1 refill by 05/08/2025 * potassium chloride ER (Klor-Con M) 20 MEQ tablet(Started 06/02/2024) TAKE 2 TABLETS BY MOUTH EVERY DAY 3 refills by 06/02/2025 Active Problems Problem Noted Date Diagnosed Date [...] Sex Assigned at Male 10/06/2020 7:39 PM SIPHON OPERATOR Gender Identity Male 10/06/2020 7:39 PM SIPHON OPERATOR Sexual Orientation Straight 10/06/2020 7: 39 PM SIPHON OPERATOR Last Filed Vital Signs Vital Sign Reading Time Taken Comments Blood Pressure 111/75 10/18/2024 11:23 AM SIPHON OPERATOR Pulse 64 10/18/2024 11:23 AM SIPHON OPERATOR Temperature 36.1 C (97 F) 11/05/2020 7:34 AM CDT Respiratory Rate 22 11/05/2020 12:30 PM CDT Oxygen Saturation 97% 10/18/2024 11:23 AM SIPHON OPERATOR Inhaled Oxygen Concentration - - Weight 136.1 kg (300 lb) 10/18/2024 11:23 AM SIPHON OPERATOR Height 185.4 cm (6' 0.99 ) 10/18/2024 11:[address] Body Mass Index 39.59 10/18/2024 11:23 AM SIPHON OPERATOR Procedures * ME REMOTE 30 DAY ECG REV/REPORT(Performed 10/04/2024) Performed for Palpitations * EVENT MONITOR(Performed 10/04/2024) Performed for Persistent atrial fibrillation (HCC) * ECHO COMPLETE W CONTRAST(Performed 04/01/2023) Performed for Persistent atrial fibrillation (HCC), Essential hypertension, Hyperlipidemia, unspecified hyperlipidemia type * CARDIAC PROCEDURE ORDER(Performed 11/07/2020) * CARDIAC CATH(Performed 11/05/2020) * GLUCOSE - POINT OF CARE(Performed 11/05/2020) * GLUCOSE - POINT OF CARE(Performed 11/05/2020) * CBC W AUTO DIFFERENTIAL(Performed 10/17/2020) Performed for Pre-op testing * BASIC METABOLIC PANEL (CALCIUM TOTAL)(Performed 10/17/2020) Performed for Pre-op testing * NM MYOCARD PERF REST STRESS(Performed 04/11/2020) Performed for Chest pain, unspecified type * ECHOCARDIOGRAM 2D WITH DOPPLER(Performed 01/26/2020) Performed for MACHCUA (dyspnea on exertion), Persistent atrial fibrillation (HCC) Results * ME REMOTE 30 DAY ECG REV/REPORT (10/04/2024) Impressions Jag Licea MD - 10/04/2024 - 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 - His maximum heart rate was 127 bpm. - His average heart rate was 66 bpm. - His minimum heart rate was 50 bpm. - There were 3 symptomatic patient triggered events. One of the patient triggered events demonstrates paroxysmal atrial fibrillation and two of the patient triggered events demonstrates sinus rhythm. 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 - His maximum heart rate was 127 bpm. - His average heart rate was 66 bpm. - His minimum heart rate was 50 bpm. - There were 3 symptomatic patient triggered events. One of the patient triggered events demonstrates paroxysmal atrial fibrillation and two of the patient triggered events demonstrates sinus rhythm. Jag Licea MD CARDIAC SERVICES ORDERABLES * ECHO COMPLETE W CONTRAST (04/01/2023 1:42 PM CDT) BSA 2.9730021 m2 SSM CV FUJ I PACS LVOT stroke vol 62.53 cm3 SSM CV FUJI PACS AV envelope time 297 ms SSM CV FUJI PACS LVOT envelope time 240 ms SSM CV FUJI PACS LVOT diam 2.1 cm SSM CV FUJ I PACS LVOT area 3.46 cm2 SSM CV FUJ I PACS MV E pk diedre 80.464 cm/s SSM CV F UJI PACS MV avg E/e' ratio 7.47 SS M CV FUJI PACS MV E' lateral deidre 12.042 cm/s SS M CV FUJI PACS MV DT 236 ms SSM CV FUJ I PACS MV E' septal deidre 9.738 cm/s SSM CV FUJI PACS MV E/e' septal 8.263 SSM C V FUJI PACS MV E/e' lateral 6.682 SSM CV FUJI PACS TR pk deidre 241.6 cm/s SSM CV FUJ I PACS LVOT pk deidre 1.00 m/s SSM CV F UJI PACS LVOT mn deidre 0.64 m/s SSM CV F UJI PACS LVOT mn grad 1.8 mmHg SSM CV FUJI PACS LVOT Cardiac Output 3.571 l/min SSM CV FUJI PACS TV S' deidre 17.068 SSM CV FUJ I PACS AV mn grad 3 mmHg SSM CV FU JI PACS AV pk grad 5 mmHg SSM CV FU JI PACS AV mn deidre 0.75 m/s SSM CV [facility] I PACS AV pk deidre 1.09 m/s SSM CV FUJ I PACS AV VTI 22.281 cm SSM CV FUJ I PACS LVOT pk grad 2.543 mmHg SSM CV FUJI PACS LVOT VTI 18.063 cm SSM CV [facility] I PACS AV area planimetry 2.81 cm2 SSM CV FUJI PACS AV area index 1.1 cm2/m2 SSM CV FUJI PACS AV area cont VTI 2.9 cm2 SSM CV FUJI PACS AV area pk deidre 3.3 cm2 SSM C V FUJI PACS AV Doppler deidre index pk deidre 0.92 SSM CV FUJI PACS Dimensionless Index 0.811 SSM CV FUJI PACS MV decel slope 341.281 cm/s2 SSM C V FUJI PACS TR pk grad 23 mmHg SSM CV FU JI PACS PV mn grad 2 mmHg SSM CV FU JI PACS PV pk deidre 97.805 cm/s SSM CV FUJ I PACS PV pk grad 3 mmHg SSM CV FU JI PACS PV mn deidre 61.905 cm/s SSM CV FUJ I PACS Max Age Predicted HR 147 SSM CV FUJI PACS Target HR 125 SSM CV FUJ I PACS LA Size 4.151 cm SSM CV FUJ I PACS Anatomical Region Laterality Modality Ultrasound Narrative 04/03/2023 7:55 PM CDT Left Ventricle: Left ventricle size is normal. Normal wall thickness. Normal systolic function. Normal wall motion. Normal diastolic function. Left Ventricle Left ventricle size is normal. Normal wall thickness. Normal systolic function. Normal wall motion. Normal diastolic function. Right Ventricle Right ventricle size is normal. Normal systolic function. Left Atrium Left atrium size is normal. Right Atrium Right atrium size is normal. IVC/SVC IVC diameter is less than or equal to 21 mm and decreases greater than 50% during inspiration; therefore the estimated right atrial pressure is normal (~3 mmHg). Mitral Valve Valve structure is normal. No restricted motion. Trace regurgitation. No stenosis. Tricuspid Valve Valve structure is normal. No restricted motion. Trace regurgitation. No stenosis. Aortic Valve Valve structure is trileaflet. No restricted motion. No regurgitation. No stenosis. Pulmonic Valve Valve structure is normal. No restricted motion. No regurgitation. No stenosis. Ascending Aorta Normal sized sinus of Valsalva (aortic root) and ascending aorta. Pericardium No pericardial effusion. Study Details Study quality was adequate. A complete 2D, color Doppler, spectral Doppler and M-mode echocardiogram was performed. The apical, parasternal, subcostal and suprasternal views were obtained. Definity ultrasound enhancing agent used. Procedure Note Brian Gallegos MD - 04/03/2023 Left Ventricle: Left ventricle size is normal. Normal wall thickness.Normal systolic function. Normal wall motion. Normal diastolic function. Brian Gallegos MD ECHO CUPID * CARDIAC PROCEDURE ORDER (11/07/2020 9:34 PM CDT) Narrative 11/07/2020 9:34 PM CDT Ordered by an unspecified provider. Scanned Document CARDIAC SERVICES ORD ERABLES * CARDIAC CATH PROCEDURE (11/05/2020 12:00 PM CDT) 11/05/2020 12:0 0 PM CDT Narrative Procedure Note Brian Gallegos MD - 11/05/2020 1:00 PM CDT [facility] CARDIAC CATHETERIZATION PATIENT: KATHY GUARDADO MR#: [id number] ADMIT DATE: 11/05/2020 CSN: [id number] PROCEDURE DATE: 11/05/2020 :1950 PHYSICIAN: Brian Gallegos MD ROOM: [facility] REFERRING PHYSICIAN: Brian Gallegos MD PROCEDURE: 1. Left heart catheterization. 2. Left ventriculography. 3. Selective left and right coronary angiography. 4. Conscious sedation, supervision, and administration using Versed and fentanyl in the presence of a trained personnel. HISTORY AND INDICATIONS: The patient is referred for cardiaccatheterization in view of abnormal stress test and chest pain. PROCEDURE: Left heart catheterization was performed using a 5 Frenchpigtail catheter which was advanced through a 5 Nepalese sheath in the rightfemoral artery. Left ventriculography was performed using a 5 Nepalese pigtail catheteradvanced through a 5 Nepalese sheath in the right femoral artery. Selective left and right coronary angiography was performed using 5 FrenchJL4 and 5 Nepalese JR4 guide catheters advanced through a 5 Nepalese sheath inthe right femoral artery. CORONARY ARTERIOGRAPHY: 1. There is no focal critical epicardial coronary artery disease in this right dominant system. 2. The left main is normal. 3. The left anterior descending artery and diagonal branches are free ofany critical stenosis. 4. Right coronary artery is free of any critical stenosis. LEFT VENTRICULOGRAPHY: Left ventriculography reveals overall preservedleft ventricular systolic function. CONCLUSION: Plan and Recommendations: 1. Discontinue sheath. 2. IV hydration. 3. Seek noncardiac cause of symptoms. I would like to take this opportunity to thank you for letting meparticipate in the care of this very interesting patient. BRIAN GALLEGOS MD ASN/MODL #: [id number] MEDICAL/SURGICAL CARDIAC CATHETERIZATION - DP Brian Gallegos MD CARDIAC SERVICES ORD ERABLES [facility] * (ABNORMAL) GLUCOSE - POINT OF CARE (11/05/2020 8:39 AM CDT) Only the most recent of2 resultswithin the time period is included. [facility] Glucose WB/POC 167(H) 70 - 106 mg/dL 11/05/2020 8:41 AM CDT [facility] Specimen Type Arterial/C apillary 11/05/2020 8:41 AM CDT [facility] Blood BLOOD SPECIMEN / Unknown 11/05/2020 8:39 AM CDT 11/05/2020 8:41 AM CDT Brian Gallegos MD LAB - POINT OF CARE ORDERABLES Performing Organization Address City/State/[facility] Co de Phone Number [facility] [address] [place] [id number] * CBC WITH DIFFERENTIAL (10/17/2020 11:59 AM SIPHON OPERATOR) [facility] WBC 9.0 3.4 - 10.8 x10E3/uL [facility] INSURANCE BILL RBC 5.34 4.14 - 5.80 x10E6/uL [facility] INSURANCE BILL Hemoglobin 14.3 13.0 - 17.7 g/dL [facility] INSURANCE BILL Hematocrit 43.2 37.5 - 51.0 % [facility] INSURANCE BILL MCV 81 79 - 97 fL [facility] INSURANCE BILL MCH 26.8 26.6 - 33.0 pg [facility] INSURANCE BILL MCHC 33.1 31.5 - 35.7 g/dL [facility] INSURANCE BILL RDW 14.3 11.6 - 15.4 % [facility] INSURANCE BILL Platelet Count 315 150 - 450 x10E3/uL [facility] INSURANCE BILL Granulocytes % 61 Not Estab. % [facility] INSURANCE BILL Lymphocytes % 30 Not Estab. % [facility] INSURANCE BILL Monocytes % 7 Not Estab. % [facility] INSURANCE BILL Eosinophils % 1 Not Estab. % [facility] INSURANCE BILL Basophils % 1 Not Estab. % [facility] INSURANCE BILL Immature Cells NOT NEEDED [facility] INSURANCE BILL Comment:Ancillary determined the test is not needed. Granulocytes Absolute 5.6 1.4 - 7.0 x10E3/uL [facility] INSURANCE BILL Lymphocytes Absolute 2.7 0.7 - 3.1 x10E3/uL [facility] INSURANCE BILL Monocytes Absolute 0.6 0.1 - 0.9 x10E3/uL [facility] INSURANCE BILL Eosinophils Absolute 0.1 0.0 - 0.4 x10E3/uL [facility] INSURANCE BILL Basophils Absolute 0.1 0.0 - 0.2 x10E3/uL [facility] INSURANCE BILL Immature Granulocytes 0 Not Estab. % [facility] INSURANCE BILL Immature Granulocytes Absolute 0.0 0.0 - 0.1 x10E3/uL [facility] INSURANCE BILL nRBC NOT NEEDED [facility] INSURANCE BILL Comment:Ancillary determined the test is not needed. Comment Hematology NOT NEEDED [facility] INSURANCE BILL Comment:Ancillary determined the test is not needed. Blood BLOOD SPECIMEN / Unknown 10/17/2020 11:59 AM SIPHON OPERATOR 10/17/2020 Narrative Resulting Agency Comment Lab Testing performed at: [facility] [address] [phone] Brian Gallegos MD LAB - HEMATOLOGY ORD ERABLES [facility] INSURANCE BILL [address] [place] [address] * (ABNORMAL) BASIC METABOLIC PANEL (CALCIUM TOTAL) (10/17/2020 11:59 AM SIPHON OPERATOR) Glucose 149(H) 65 - 99 mg/dL [facility] INSURANCE BILL BUN 13 8 - 27 mg/dL [facility] INSURANCE BILL Creatinine 0.79 0.76 - 1.27 mg/dL [facility] INSURANCE BILL eGFR by MDRD 90 >59 mL/min/1.7 3 [facility] INSURANCE BILL eGFR by MDRD 104 >59 mL/min/1.7 3 [facility] INSURANCE BILL BUN/Creatinine Ratio 16 10 - 24 [facility] INSURANCE BILL Sodium 138 134 - 144 mmol/L [facility] INSURANCE BILL Potassium 4.0 3.5 - 5.2 mmol/L [facility] INSURANCE BILL Chloride 97 96 - 106 mmol/L [facility] INSURANCE BILL CO2 26 20 - 29 mmol/L [facility] INSURANCE BILL Calcium 9.2 8.6 - 10.2 mg/dL [facility] INSURANCE BILL Blood BLOOD SPECIMEN / Unknown 10/17/2020 11:59 AM SIPHON OPERATOR 10/17/2020 Narrative Resulting Agency Comment Lab Testing performed at: [facility] [address] [facility] [id number] Brian Gallegos MD LAB - CHEMISTRY [facility] INSURANCE BILL [address] [place] [address] * NM MYOCARD PERF REST STRESS (04/11/2020 12:23 PM CDT) Anatomical Region Laterality Modality Chest Nuclear Digisoni cs 04/11/2020 7:57 AM CDT Narrative Procedure Note Brian Gallegos MD - 04/16/2020 [address] [place] [address] [employer] Nuclear Myocardial Perfusion Scan Report Pat.Name: KATHY GUARDADO Pat.ID: [id number] St.Date: 04/11/2020 Exam Time: 7:57:00 AM Study Type:Nuclear Myocardial Perfusion Scan Age: 10 1950,69Y Sex: MALE Sonogrphr: MILENA [place] Reason for Study: Chest pain Procedures: Lexiscan Perfusion Scan Visit ID: [id number] Nurse: Danika Chavarria RN Risk Factors:Hypertension Medications:Amlodipine, Eliquis, Aspirin, Atorvastatin, Carvedilol, Furosemide, Insulin, Lisinopril-HCTZ, Metformin. Supervised by:Seth Vargas MD,[facility], [facility] ++++++++++++++++++++++++++++++++++++ SUMMARY: ++++++++++++++++++++++++++++++++++++ Myocardial perfusion image interpretation: 1. There is an inferior and lateral perfusion defect, more prominent resting images. There is mild lateral reversibility. 2. The left ventricle ejection fraction is 59 %. The is mild lateral hypokinesis ++++++++++++++++++++++++++++++++++++ STRESS: ++++++++++++++++++++++++++++++++++++ Baseline Vital Signs: Intervention Lexiscan Peak Dose 0.4 mg Rest HR 70 Atropine 0 Rest BP: 141/82 Baseline Rhythm Normal sinus rhythm Stress Test Results: Symptoms and Complications: Arrhythmias PVCs Reason for Stopping Test: Protocol completed Stress Induced Symptoms: Shortness of breath, Mild Chest pain. Hemodynamics Ending heart rate was 77 and ending blood pressure was 144/74. ECG Findings: No ischemic S-T changes during lexiscan infusion. Signed 04/16/2020 09:30 AM Brian Gallegos MD, FACC Jag Licea MD NM ORDERABLES * ECHOCARDIOGRAM 2D WITH DOPPLER (01/26/2020 11:46 AM CDT) 01/26/2020 11:4 6 AM CDT Narrative Procedure Note Mahad Edwards MD - 01/29/2020 . [facility] [address] [place], [place] [id number] Echocardiography Examination Transthoracic Name: KATHY GUARDADO RUST#: MR#: [id number] Admission Number: [id number] Study Date: 01/26/2020 Study Time: 11:55 AM Date Of : 1950 Age: 69 years Height: 73 in. (185.4 cm) Weight: 305 lbs. (138.35 kg) BSA: 2.57 m2 Gender: Male Blood Pressure: 159 mmHg / 97 mmHg Heart Rate: Rhythm: Infection: Emergency: Contrast Allergy: Procedure Certified Ophthalmic Technician: JAMAL Baez Ordering Physician: Jag Licea MD Reading Physician: Mahad Edwards MD Reading Group: [facility] Indication: Shortness of Breath Conclusions Left Ventricle: Left ventricle is normal in size. Normal global systolic left ventricular function. EF range is estimated at 50 % -55 %. Left ventricle wall thickness is mildly increased. Although no diagnostic regional wall motion abnormality was identified, this possibility cannot be completely excluded on the basis of this study. Left ventricular diastolic function parameters are normal. Follow up: Findings Left Ventricle: Left ventricle is normal in size. Normal global systolic left ventricular function. EF evaluated by visual assessment. Left ventricle wall thickness is mildly increased. Although no diagnostic regional wall motion abnormality was identified, this possibility cannot be completely excluded on the basis of this study. Left ventricular diastolic function parameters are normal. IVS: The septum is intact. Patient: KATHY GUARDADO Study Date: 01/26/2020 11:55 AM Page 1 of 3 Right Ventricle: Normal size right ventricle. Right ventricular wall thickness is normal. Right ventricular systolic function is normal. Pulmonary artery pressure normal. Left Atrium: The left atrium is normal in size. IAS: Normal appearing atrial septum. Right Atrium: The right atrium is normal in size. Mitral Valve: Mitral leaflets exhibit normal cuspal separation. No mitral regurgitation. No mitral valve stenosis. Aortic Valve: Aortic valve is poorly visualized. Aortic leaflets exhibit normal cuspal separation. No aortic valve regurgitation. There is no aortic stenosis. Tricuspid Valve: Tricuspid valve leaflets are normal. No tricuspid regurgitation. No tricuspid valve stenosis. Pulmonic Valve: Pulmonic leaflets exhibit normal cuspal separation. No pulmonic valve regurgitation is evident. There is no pulmonic valve stenosis. Aorta: The aorta is normal. No dilatation of the aorta. The aortic root exhibits normal size. Great Vessels: Pulmonary Artery: The pulmonary artery morphology appears normal. IVC: The inferior vena cava is normal in size and course. Pericardium: The pericardium is normal in appearance. A pericardial fat pad is present. No pericardial effusion. Exam Details Procedure Ordered: ECHOCARDIOGRAM 2D W/DOPPLER Procedure Components: Complete 2D, M-mode, complete spectral Doppler, color Doppler, Definity Procedure Status: Routine study Image Quality: The study was limited due to poor acoustic windows Facility Location: [facility] Measurements Anatomy Label Value Normal Value Aorta AoAsc 2.8 cm Aorta AoRoot, MM 3.3 cm (2.2cm - 3.7cm) Aorta AoRoot, 2D 3.2 cm (1.4cm - 2.6cm) Interventricular septum IVSd, 2D 1.3 cm (0.6cm - 1.1cm) Left Atrium LADs, MM 4.9 cm (3cm - 4cm) Left Atrium LADs, 2D 3.1 cm (3cm - 4cm) Left Ventricle LVOTd 2.2 cm (1.9cm - 2.1cm) Left Ventricle LVDd, 2D 3.5 cm (4.2cm - 5.9cm) Left Ventricle LVDs, 2D 2.4 cm (2.2cm - 3.5cm) Left Ventricle LVPWd, 2D 1.2 cm (0.6cm - 1cm) Left Ventricle FS, 2D 31.43 % Left Ventricle LVEDV, BP 89 ml (67ml - 155ml) Left Ventricle LVESV, BP 46 ml (22ml - 58ml) Patient: KATHY GUARDADO Study Date: 01/26/2020 11:55 AM Page 2 of 3 Left Ventricle EF lower range (%) 50 % Left Ventricle EF upper range (%) 55 % Left Ventricle Diastolic MV E Vmax 0.86 m/s Function Left Ventricle Diastolic MV A Vmax 0.32 m/s Function Left Ventricle Diastolic MV E/A 2.69 Function Left Ventricle Diastolic MV E/E' lateral 5.84 Function Left Ventricle Diastolic MV E/E' septal 17.36 (0.45 - 1.25) Function Left Ventricle Diastolic MV E' septal 0.05 m/s Function Left Ventricle Diastolic MV E' lateral 0.15 m/s Function Left Ventricle Diastolic MV E/E' mean 8.6 Function Left Ventricle Diastolic MV E' mean 0.1 m/s Function Pulmonic Valve PV PGmax 3 mmHg Pulmonic Valve PV Vmax, Caliper 0.86 m/s (0.6m/s - 0.9m/s) Right Ventricle Diastolic TR Pmax 23 mmHg Function Tricuspid Valve TR Vmax 2.38 m/s (No Signature Object) Patient: KATHY GUARDADO Study Date: 01/26/2020 11:55 AM Page 3 of 3 Jag Licea MD ECHO ORDERABLES [facility] CCW Care Teams Overedger Relationship Specialty Start Date End Date Pj Singh MD [address] [place] [address] [address] [place] [address] PCP - General Hospitalist 04/01/23 [place] [address] [address] Consulting Physician Cardiac Electrophysiology 10/11/20 [place] [address] [facility] [address] [place] [phone] Electrotherapist Cardiovascular Disease 12/20/20
--- OUTSIDE RECORDS SUMMARY | 2024-11-06 14:51 | XMS_ITS | Referral Summary ---
Author Organization [facility] Address [address] [place] [id number] Care Team Providers Care Respite Care Provider Name Role Phone Damion Donis MD Unavailable [phone] Pj Singh MD Primary Care Provider [phone] Stone Cai MD Unavailable Encounters Date Type Department Care Team Description 10/05/2024 Telephone [facility] Primary Care at [address] [phone] Pj Singh MD Medical Question/Miscellaneou s 08/22/2024 Telephone [facility] Primary Care at [address] [place] [phone] Pj Singh MD 08/09/2024 Telephone [facility] Primary Care at [address] [phone] Pj Singh MD Medical Question/Miscellaneou s 08/09/2024 Orders Only [facility] Primary Care at [address] [phone] Pj Singh MD Elevated PSA, between 10 and less than 20 ng/ml (Primary Dx); History of nonmelanoma skin cancer; Melanocytic nevus, unspecified location 08/08/2024 11:00 AM DRAFTSPERSON Office Visit [facility] Primary Care at [address] [phone] Pj Singh MD Medicare annual wellness visit, [...] than 20 ng/ml from Last 3 Months Allergies Active Allergy Reactions Criticality Noted Date Comments Tramadol Stomach upset Low 12/02/2020 Medications lutein-zeaxanthin 25-5 mg capsule Take 1 capsule by mouth daily Active vitamin V68-eocwr acid 0.5-1 mg tablet Take 1 tablet by mouth daily Active Klor-Con M20 20 mEq CR tablet Take 1 tablet (20 mEq total) by mouth daily Taking 1-2 tablets at night Active carvediloL (COREG) 25 mg tablet Take [...] MG TOTAL) BY MOUTH DAILY 100 tablet 024 Active modafiniL (PROVIGIL) 200 mg tabletIndications:H ypersomnia with sleep apnea TAKE 1 TABLET (200 MG TOTAL) BY MOUTH DAILY 30 tablet 024 Active Additional Information Patient not taking.Reported on 06/26/2024 pen needle, diabetic (Unifine Pentips) 32 gauge x needle 1 pen needle daily 100 each 3 024 Active pen needle, diabetic (Unifine Pentips) 32 gauge x 5/32 needle 1 pen needle 2 (two) times a day 100 each Active blood glucose diagnostic (Accu-Chek Zoila Plus test strp) stripIndications:Ty pe 2 diabetes mellitus without complication, with long-term current use of insulin (HCC) USE TO TEST 3 TIMES A DAY [...] BY MOUTH TWICE DAILY 180 tablet 1 Active amLODIPine (NORVASC) 5 mg tablet TAKE 1 TABLET (5 MG TOTAL) BY MOUTH EVERY MORNING 90 tablet 1 Active finasteride (PROSCAR) 5 mg tablet TAKE 1 TABLET BY MOUTH EVERY DAY 100 tablet Active fenofibrate nanocrystallized (TRICOR) 145 mg tablet Take 1 tablet (145 mg total) by mouth daily 90 tablet 1 Active blood-glucose sensor deviceIndications:T ype 2 diabetes mellitus without complication, with long-term current use of insulin ([facility]) 1 each every 14 (fourteen) days May substitute whatever CGM is covered by insurance. 1 each 024 2024 Active flash glucose scanning reader (FreeStyle Ceeclia 2 [place]) miscIndications:Typ e 2 diabetes mellitus without complication, with long-term current use of insulin ([facility]) 1 each once for 1 dose May [...] mg total) by mouth daily 100 tablet 025 2024 Active semaglutide (Ozempic) 0.25 mg or 0.5 mg (2 mg/3 mL) pen injector injection INJECT 0.5 MG UNDER THE SKIN ONCE A WEEK 3 mL Active Eliquis 5 mg tablet TAKE 1 TABLET BY MOUTH TWICE DAILY 180 tablet 024 2024 Discontinued(R eorder) pioglitazone (ACTOS) 30 mg tabletIndications:t ype 2 diabetes mellitus TAKE 1 TABLET (30 MG TOTAL) BY MOUTH DAILY 100 tablet 024 2024 Discontinued(R eorder) Jardiance 10 mg tablet TAKE 1 TABLET (10 MG TOTAL) BY MOUTH DAILY 90 tablet 024 2024 Discontinued(R eorder) semaglutide 0.25 mg or [...] 02/07/2024 Assessment & Plan (08/08/2024 11:11 AM DRAFTSPERSON): Wt Readings from Last 3 Encounters: 08/08/24 [...] 03/30 Assessment & Plan (08/08/2024 11:23 AM DRAFTSPERSON): A yearly Medicare Annual Wellness Visit has been performed today. Kathy Tessa Hassandianelinda is up to date on screening tests. [...] Wellness Visit has been performed today. Kathy Tessa Hassandianelinda is up to date on screening tests. [...] 09/29/2021 Assessment & Plan (09/01/2022 10:12 AM DRAFTSPERSON): Rate controlled. Continue eliquis 5 mgbid and atorvastatin 40 mg every day Assessment & Plan (03/29/2022 8:59 PM CDT): Stable / clinically quiescent. Will continue to monitor. Continue eliquis Coronary artery disease invo lving [place] coronary artery of [place] heart without angina pectoris 09/29/2021 Assessment & Plan (09/01/2022 10:07 AM DRAFTSPERSON): Continue with eliquis 5 mg bid, coreg 12.5 mg bid, atorvastatin 40 mg, and control of diabetes. History of colonic polyps 05/31/2020 Overview (05/31/2020): Added automatically from request for surgery [id number] Tinnitus of both ears 05/13/2020 Assessment & [...] Nasal saline spray (Simply saline, Little Remedies, [place], [place]) 2 second sprays or 2 squeezes into [...] day Assessment & Plan (09/01/2022 10:09 AM DRAFTSPERSON): BP Readings from Last 3 Encounters: 09/01/22 [...] bid Assessment & Plan (07/01/2022 10:42 AM DRAFTSPERSON): Bp in the office today BP Readings [...] 06/30/2017 Assessment & Plan (08/08/2024 11:09 AM DRAFTSPERSON): Lab Results Component Value Date CHOL 185 [...] POCCHLPL Assessment & Plan (09/01/2022 10:11 AM DRAFTSPERSON): Lab Results Component Value Date CHOL 106 [...] 06/30/2017 Assessment & Plan (08/08/2024 11:09 AM DRAFTSPERSON): Lab Results Component Value Date HGBA1C 6.7 (H) 08/02/2024 HGBA1C 5.9 02/07/2024 HGBA1C 9.2 10/04/2023 Lab Results Component Value Date MICROALBUR 3.9 08/01/2019 LDLCALC See Comment 08/02/2024 CREATININE 1.06 08/02/2024 At goal at this time Victoza 1.8 mg every day Reviewed blood sugar logs Generalyl running within range Occasionally has high morning sugars Abuot 230 days has sugars >200 in the am [...] range Occasionally has high morning sugars Abuot 230 days has sugars >200 in the am ] Decrease metfoermin to 750 mg xr every day Assessment & Plan (10/04/2023 10:13 AM DRAFTSPERSON): Lab Results Component Value Date HGBA1C 9.2 [...] day Assessment & Plan (09/01/2022 10:37 AM DRAFTSPERSON): Lab Results Component Value Date HGBA1C 6.4 (H) 06/29/2022 HGBA1C 7.8 (H) 09/22/2021 HGBA1C 6.9 (H) 02/26/2021 Lab Results Component Value Date MICROALBUR 3.9 08/01/2019 LDLCALC 17 06/29/2022 CREATININE 0.73 (L) 06/29/2022 Logs reviewed with emerald, mostly at goal of 120-160 occasionally above that but otherwise a1c is at goal. No medication changes. Assessment & Plan (07/01/2022 10:16 AM DRAFTSPERSON): The patient was counseled on a heart-healthy, [...] 7 Assessment & Plan (09/01/2022 10:05 AM DRAFTSPERSON): S/p excision doing well - following with [...] obesity Assessment & Plan (08/08/2024 11:24 AM DRAFTSPERSON): Wt Readings from Last 3 Encounters: 08/08/24 [...] Nasal saline spray (Simply saline, Little Remedies, [place], [place]) 2 second sprays or 2 squeezes into [...] Nasal saline spray (Simply saline, Little Remedies, [place], [place]) 2 second sprays or 2 squeezes into each nostril while looking down over the sink, do not need to sniff in every morning Continue CPAP Internal derangement of left knee 02/16/2019 02/09/2020 Overview (02/16/2019): Added automatically from request for surgery [id number] Neoplasm of skin of nose 08/02/2017 Overview [...] a few days a week as tolerated Immunizations Immunization Administration Dates Next Due Influenza, [...] ZOSTER LIVE 05/11/2014 ZOSTER Recombinant 08/20/2018,05/16/2018, 018 Social History Tobacco Use Types Packs/Day Years [...] on file Legal Sex Male 11:51 PM DRAFTSPERSON Gender Identity Male 10/22/2020 4:14 PM DRAFTSPERSON Sexual Orientation Straight 10/22/2020 4: 14 PM DRAFTSPERSON Last Filed Vital Signs Vital Sign Reading Time Taken Comments Blood Pressure 120/70 08/08/2024 10:39 AM DRAFTSPERSON Pulse 72 08/08/2024 10:39 AM DRAFTSPERSON Temperature 36.9 C (98.4 F) 06/26/2024 10:33 AM DRAFTSPERSON Respiratory Rate 16 08/08/2024 10:3 9 AM DRAFTSPERSON Oxygen Saturation 95% 08/08/2024 10: 39 AM DRAFTSPERSON Inhaled Oxygen Concentration - - Weight 137.8 kg (303 lb 11.2 oz) 2023 10:39 AM DRAFTSPERSON Height 185.4 cm (6' 0.99 ) 08/08/2024 1 0:39 AM DRAFTSPERSON Body Mass Index 40.08 08/08/2024 10:39 AM DRAFTSPERSON Plan of Treatment Not on file Procedures Procedure Name Priority Date/Time Associated Diagnosis Comments EGFR Routine 08/02/2024 9:11 AM DRAFTSPERSON Type 2 diabetes mellitus without complication, with long-term current use of insulin (HCC) HEMOGLOBIN A1C Routine 08/02/2024 9:11 AM DRAFTSPERSON Type 2 diabetes mellitus without complication, with long-term current use of insulin (HCC) LIPID PANEL Routine 08/02/2024 9:11 AM DRAFTSPERSON Type 2 diabetes mellitus without complication, with long-term current use of insulin (HCC) PSA SCREEN Routine 08/02/2024 9:11 AM DRAFTSPERSON Mixed hyperlipidemia Prostate cancer screening ALBUMIN CREATININE RATIO, URINE Routine 02/07/2024 10:19 AM CDT Type 2 diabetes mellitus without complication, with long-term current use of insulin (HCC) DIABETIC EYE EXAM Routine 06/22/2022 HEPATITIS C ANTIBODY Routine 04/03/2022 11:20 AM CDT Encounter for hepatitis C screening test for low risk patient COLONOSCOPY 07/03/2020 12:26 PM DRAFTSPERSON from Last 3 Months or Most Recently Relevant to Health Maintenance Results * eGFR (08/02/2024 9:11 AM DRAFTSPERSON) eGFR 73 >=60 mL/min/1. 73 m2 Comment: [...] last reviewed 2021. Blood 08/02/2024 9:11 AM DRAFTSPERSON 08/02/2024 1:49 PM DRAFTSPERSON Pj Singh MD LAB BLOOD ORDERABLES Final Resul t Performing Organization Address [facility] de Phone Number AHMET ANTUNEZ ARNETT) [address] [facility] [place] [address] * (ABNORMAL) PSA screen (08/02/2024 9:11 AM DRAFTSPERSON) PSA-Total 19.61(H) <=6.20 ng/mL Comment: Interpretive Data [...] last revised 21. Blood 08/02/2024 9:11 AM DRAFTSPERSON 08/02/2024 1:49 PM DRAFTSPERSON us Pj Singh MD LAB BLOOD ORDERABLES Final Resul t Performing Organization Address City/[facility] Co de Phone Number AHMET ANTUNEZ [employer]ARNETT) 1 [facility] Department [place] [address] * (ABNORMAL) Hemoglobin A1c (08/02/2024 9:11 AM DRAFTSPERSON) Hgb A1C 6.7(H) 4.0 - 5.6 % Estimated Average Glucose 146 mg/dL AHMTE ANTUNEZ (ADRIAN) Comment: The ADA recommends reporting an estimated Average Glucose (eAG) with all Hemoglobin A1c results using the equation derived from a study of 507 normal and diabetic adults. Minority populations were underrepresented and children were not included. (Diabetes Care 31:4375-6600, 2008). The eAG is not equivalent to a fasting glucose. Blood 08/02/2024 9:11 AM DRAFTSPERSON 08/02/2024 1:49 PM DRAFTSPERSON us Pj Singh MD LAB BLOOD ORDERABLES Final Resul t AHMET ANTUNEZ (ADRIAN) 1 [facility] Department [place] [address] * (ABNORMAL) Lipid panel (08/02/2024 9:11 AM DRAFTSPERSON) Cholesterol 185 30 - 199 mg/dL Comment: [...] on 2018. Triglycerides 552(H) <=149 mg/dL AHMET MANUEL) Comment: Interpretive Data Ages < or = [...] NCEP Expert Panel. Circulation 2004;110:227 3. Grant Salter et al. NEAL Cardiol. 2020 December 21;5(5):540-548. doi: 10.1001/jamacardio.2020.0013 Current Interpretive Data was [...] on 2018. Chol/HDL ratio 7 [facility] (ARNETT) Blood 08/02/2024 9:11 AM DRAFTSPERSON 08/02/2024 1:49 PM DRAFTSPERSON Pj Singh MD LAB BLOOD ORDERABLES Final Resul t Performing Organization Address City/[facility]/ZIP Co de Phone Number AHMET [facility] (ARNETT) 1 [facility] Department [place] [address] * Albumin Creatinine Ratio, Urine (02/07/2024 10:19 AM CDT) Albumin Ur <12.0 mg/L Comment: Interpretive Data No reference range established. Current interpretive data was last revised 2019. Creatinine Ur 89.7 mg/dL [facility] Comment: Interpretive Data No reference range established. Current interpretive data was last revised 2019. Albumin Creatinine Ratio, Ur <13 1 - 29 mg/g AHMET Urine 02/07/2024 10:1 9 AM CDT 02/07/2024 8:20 PM CDT Pj Singh MD LAB URINE ORDERABLES Final Resul t Performing Organization Address City/[facility]/ZIP Co de Phone Number [facility] [address] Department [place] [address] * Diabetic Eye Exam (06/22/2022) Generic External Data Provider HEALTH MAINTENANC E Final Result * Hepatitis C antibody (04/03/2022 11:20 AM CDT) Hep C Ab Nonreactive Nonreactive AHMET ANTUNEZ (ARNETT) Comment: Interpretive Data Nonreactive: Antibodies to HCV [...] last revised on 2019. Testing performed by: [facility], [address] [place] [address], [id number] Blood 04/03/2022 11:2 0 AM CDT 04/03/2022 3:45 PM CDT Narrative AHMET ANTUNEZ (ADRIAN) - 04/03/2022 4:43 PM CDT fasting Mary Hayes MD LAB MICROBIOL OGY - GENERAL ORDERABLES Edited Result - Final AHMET ANTUNEZ (ARNETT) 1 [facility] Department [place] [address] * COLONOSCOPY (07/03/2020 12:26 PM DRAFTSPERSON) Anatomical Region Laterality Modality Other Narrative Procedure Note Sherrie Haque MD - 07/03/2020 12:26 PM CST [facility] Patient Name: aKthy Guardado Procedure Date: 07/03/2020 12:26PM Date of : 1950 Admit Type: Outpatient Age: 70 Gender: Male Attending MD: Sherrie Haque M.D. Room: [facility] ENDOSCOPY ROOM 1 Note Status: Finalized Patient Profile: This is a 70 year old male. No family history ofcolon cancer. History of adenoma polyps 5 years ago. Procedure: Colonoscopy Indications: Surveillance: Personal history of adenomatous polypson last colonoscopy 5 years ago, Last colonoscopy: June 2015 Referring MD: Kanu Hauser M.D. Providers: Sherrie Haque M.D. Impression: [...] passed under direct vision. The PediatricColonoscope PCF-H190L [id number] was introduced through the anusand advanced to [...] perforation orabscess without bleeding CPT copyright 2017 [employer]. All rights reserved. The codes documented in this report are preliminary and upon client server developer reviewmay be revised to meet current compliance requirements. Recognized by the [employer] for promoting quality in endoscopy Sherrie Haque MD ENDOSCOPY PROCEDURES Final Result from Last 3 Months or Most Recently Relevant to Health Maintenance Insurance MEDICARE [facility] MEDICARE [facility] MEDICARE [facility] MEDICARE SUPPLEMENT Advance Directives For more information, please contact: [phone] * Full Code (Latest Code Status on File) Date Activated Date Inactivated Comments 07/03/2020 12:20 PM 07/03/2020 6:29 PM * Full Code Date Activated Date Inactivated Comments 07/03/2020 12:20 PM 07/03/2020 12:20 PM Care Teams Respite Care Provider Relationship Specialty Start Date End Date Pj Singh MD [address] [place] [address] PCP - General Family Medicine 09/01/22 Damion Donis MD [address] [place] [address] Consulting Physician Urology 03/30/22 Stone Cai MD [address] [place] [address] Consulting Physician Neurology 11/30/22
--- OUTSIDE RECORDS SUMMARY | 2024-11-06 14:51 | XMS_ITS | Clinical Summary ---
Author Organization [facility] Address [address] [place] [address] Phone Care Team Providers Care Strategic Debriefing Specialist Name Role Phone Kanu Hauser MD Primary Care Provider [phone] Allergies No known active allergies Medications metFORMIN (GLUCOPHAGE-XR) 750 MG TABLET SR 24 HR Take 750 mg by mouth daily. This RX is for Metformin SR. Active lisinopril-hydr oCHLOROthiazide (PRINZIDE, ZESTORETIC) 20-12.5 MG Tablet Take 1 Tab by mouth 2 times daily. Active omeprazole (PRILOSEC) 20 MG CAPSULE DELAYED RELEASE Take 40 mg by mouth daily. Active tamsulosin (FLOMAX) 0.4 MG Capsule Take 0.8 mg by mouth daily. Active Insulin Degludec (TRESIBA FLEXTOUCH SC) by Subcutaneous route. Active oxybutynin (DITROPAN-XL) 10 MG TABLET SR 24 HR Take 10 mg by mouth daily. Active Multiple Vitamins-Minera ls (OCUVITE EXTRA PO) Take by mouth daily. Active finasteride (PROSCAR) 5 MG Tablet Take 5 mg by mouth daily. Active amLODIPine (NORVASC) 5 MG Tablet Take 5 mg by mouth daily. Active aspirin EC 81 MG Tablet Delayed Response Take 81 mg by mouth daily. Active Mirabegron ER (MYRBETRIQ) 50 MG TABLET SR 24 HR Take by mouth. Activ e Liraglutide (VICTOZA SC) by Subcutaneous route. Active atorvastatin (LIPITOR) 40 MG Tablet Take 40 mg by mouth daily. Active Active Problems No known active problems Family History Medical History Relation Name Comments Diabetes Father Heart Attack Mother Relation Name Status Comments Father Mother Social History Tobacco Use Types Packs/Day Years Used Date Smoking Tobacco: Never Smokeless Tobacco: Never Alcohol Use Standard Drinks/Week Comments No 0 (1 standard drink = 0.6 oz pur e alcohol) Sex and Gender Information Value Date Recorded Sex Assigned at Not on file Legal Sex Male 7:15 PM CDT Gender Identity Not on file Sexual Orientation Not on file Last Filed Vital Signs Vital Sign Reading Time Taken Comments Blood Pressure 138/68 01/09/2019 10:14 AM CDT Pulse 81 01/09/2019 10:14 AM CDT Temperature 36.6 C (97.9 F) 01/09/2019 10:14 AM CDT Respiratory Rate 20 01/09/2019 10:14 AM CDT Oxygen Saturation 97% 01/09/2019 10:14 AM CDT Inhaled Oxygen Concentration - - Weight 134.7 kg (297 lb) 01/09/2019 10:14 AM CDT Height 185.4 cm (6' 1 ) 01/09/2019 10:14 AM CDT Body Mass Index 39.18 01/09/2019 10:14 AM CDT Plan of Treatment Health Maintenance Due Date Last Done Comments Hepatitis C Virus (HCV) Screening 1950 TdaP Immunization 1950 Colonoscopy 1994 Colorectal Cancer Screening 1994 Cologuard 1999 Immunochemical Fecal Occult Blood 1999 Pneumococcal Immunization (5 0+ years) (1 of 1 - PCV) 1999 Zoster Immunization (2 of 2) 07/11/2018 05/16/2018 Influenza Immunization (#1) 04/23/202405/23, 2014, 06/27/2013 SARS-COV-2 Immunization ( season) 2024 06/20/2021, 11/22/2020, 10/25/2020 Respiratory Syncytial Virus (RSV) Immunization (Adult) (1 - 1-dose 75+ series) 2024 Hepatitis B Immunization Aged Out No longer eligible based on patient's age to complete this topic Meningococcal Immunization (ACWY) Aged Out No longer eligible b ased on patient's age to complete this topic Rotavirus Immunization Aged Out No lo nger eligible based on patient's age to complete this topic Insurance MEDICARE Care Teams Strategic Debriefing Specialist Relationship Specialty Start Date End Date Kanu Hauser MD [address] [facility] [address] [place] [address] [place] [id number] PCP - General Internal Medicine 09/03/17
--- OUTSIDE RECORDS SUMMARY | 2024-11-06 14:51 | XMS_ITS | Encounter Summary ---
Author Organization [facility] Address [address] [place] [address] Care Team Providers Care Toe Pounder Name Role Phone Damion Donis MD Unavailable [phone] Pj Singh MD Primary Care Provider [phone] Stone Cai MD Unavailable Reason for Visit * Reason Onset Date Comments Medical Question/Miscellaneous 10/05/2024 Encounter Details Date Type Department Care Team (Late st Contact Info) Description 10/05/2024 Telephone [facility] Primary Care at [address] [place] [address] Pj Singh MD [address] [place] [address] [address] [place] [address] Medical Question/Miscellaneous Social History Tobacco Use Types Packs/Day Years [...] on file Legal Sex Male 11:51 PM TROUBLE LOCATOR TEST DESK Gender Identity Male 10/22/2020 4:14 PM TROUBLE LOCATOR TEST DESK Sexual Orientation Straight 10/22/2020 4: 14 PM TROUBLE LOCATOR TEST DESK documented as of this encounter Miscellaneous Notes * Telephone Encounter - Samara Medrano - 10/05/2024 11:32 AM CST Medication Question/Clarification Medication Name(s)/Dose: CGM/Freestyle Cecelia 3 What is the question or clarification needed? Patient states he went to the pharmacy to supervisor picking crew glucose meter and was told by pharmacy they are waiting on more information. Please advise. If needed, Pharmacy(s) medication(s) should be sent to: [facility] file Additional Comments: Refer to message on 08/22/24 Does message need to be routed? Yes-Action Needed BLE LOCATOR TEST DESK BLE LOCATOR TEST DESK documented in this encounter Plan of Treatment Not on file documented as of this encounter Visit Diagnoses Not on filedocumented in this encounter Care Teams Toe Pounder Relationship Specialty Start Date End Date Pj Singh MD [address] [place] [address] PCP - General Family Medicine 09/01/22 Damion Donis MD [address] [place] [address] Consulting Physician Urology 03/30/22 Stone Cai MD [address] [place] [address] Consulting Physician Neurology 11/30/22 documented as of this encounter
== END 2024-11-06 12:30 | disposition home or self-care (01) ==
PROVIDERS: PCP Family Medicine; Visit Provider Urology
DX: C61 Malignant neoplasm of prostate (principal); R91.1 Solitary pulmonary nodule; R91.8 Other nonspecific abnormal finding of lung field; E04.1 Nontoxic single thyroid nodule; M89.8X8 Other specified disorders of bone, other site
CPT/HCPCS: 78815; A9596